=== PATIENT | male | born 1935 | race Caucasian/White ===

== ENCOUNTER → 2016-07-03 | Outpatient (CLI) | payer OTHER ==
[~2016-07-03] MED LIST: ASPIRIN81 M1 PO; ATORVASTATIN CA40 M1 PO; BRILINTA90 M1 PO; CEFTIN500 M1 PO; DARVOCET N 1001 TAB PO; GEMFIBROZIL600 MG PO; GLIMEPIRIDE4 MG PO; HYDRODIURIL25 MG PO; LISINOPRIL20 MG PO; METFORMIN1000 MG PO; METOPROLOL SUCC25 M2 PO; METOPROLOL SUCC50 M2 PO; ONGLYZA5 MG PO; SIMVASTATIN5 MG PO; THE MEDICINE SH20 M1 PO; ZANTAC150 MG PO
== END | disposition home or self-care (01) ==
LOC: CARD 15:49
DX: I25.10 Atherosclerotic heart disease of native coronary artery without angina pectoris (principal); I08.1 Rheumatic disorders of both mitral and tricuspid valves

== ENCOUNTER 2016-07-23 09:11 | Emergency (ER) | payer OTHER ==
[~2016-07-23] VITALS: Ht 182.8 cm; Wt 90.7 kg
[2016-07-23 10:19] LABS: BASO % 0.2 % (0.0-1.0); EOS % 0.7 % (1.0-4.0); HEMATOCRIT 30.8 % (42.0-52.0); HEMOGLOBIN 9.5 g/dl (14.0-18.0); IG # 0.1 10*3/uL (0.0-0.1); LYMPH % 17.6 % (27.0-41.0); MEAN CELL VOLUME 91.7 fl (80.0-94.0); MEAN CORPUSCULAR HGB 28.3 pg (27.0-31.0); MEAN CORPUSCULAR HGB CONC 30.8 g/dl (33.0-37.0); MEAN PLATELET VOLUME 9.3 fl (9.6-12.3); MONO # 0.3 10*3/uL (0.1-1.0); NEUT # 4.2 10*3/uL (2.3-7.9); NEUT % 74.9 % (47.0-73.0); PLATELET COUNT AUTOMATED 156 10*3/uL (130-400); RED BLOOD COUNT 3.36 10*6/uL (4.50-5.90); RED CELL DISTRI WIDTH 14.3 % (0-14.5); WHITE BLOOD COUNT 5.6 10*3/uL (4.8-10.8)
[2016-07-23 10:26] LABS: PROTHROMBIN TIME 10.8 SECONDS (9.0-12.4)
[2016-07-23 10:36] LABS: ALBUMIN 3.4 gm/dl (3.1-4.5); ALKALINE PHOSPHATASE 96 U/L (45-117); BUN 29 mg/dl (7-24); CARBON DIOXIDE 25 mmol/L (21-32); CHLORIDE 109 mmol/L (98-107); CPK 323 U/L (39-308); EST GLOM FILT AFRICAN AMERICAN > 60 ml/min; GLUCOSE 86 mg/dL (65-99); MAGNESIUM 1.3 mg/dL (1.5-2.1); POTASSIUM 4.5 mmol/L (3.5-5.1); SGOT/AST 49 IU/L (3-35); SGPT/ALT 21 U/L (12-78); SODIUM 145 mmol/L (136-145); TOTAL PROTEIN 6.6 gm/dL (6.4-8.2)
[2016-07-23 10:40] LABS: BILIRUBIN, TOTAL 0.2 mg/dl (0.2-1.0); TROPONIN I < 0.015 ng/ml (<0.045)
[2016-07-23 11:59] VITALS: BP 144/61
[2016-07-23 12:02] LABS: BILIRUBIN NEGATIVE (NEGATIVE); BLOOD NEGATIVE (NEGATIVE); CLARITY CLEAR (CLEAR); COLOR YELLOW (YELLOW); GLUCOSE NEGATIVE (NEGATIVE); KETONE NEGATIVE (NEGATIVE); LEUKO ESTERASE NEGATIVE (NEGATIVE); NITRITE NEGATIVE (NEGATIVE); PROTEIN NEGATIVE (NEGATIVE); UROBILINOGEN 0.2 E.U./dl (0.2-1.0)
[2016-07-23 12:09] LABS: URINE REFLEX COMMENT NO (NO)
== END 2016-07-23 13:41 | disposition home or self-care (01) ==
LOC: ED 09:11
PROVIDERS: Nurse Practitioner Family
DX: E16.2 Hypoglycemia, unspecified (principal); M54.5 Low back pain; I25.2 Old myocardial infarction; E11.9 Type 2 diabetes mellitus without complications; Z79.82 Long term (current) use of aspirin; Z79.899 Other long term (current) drug therapy

== ENCOUNTER → 2016-09-21 | Outpatient (CLI) | payer OTHER ==
[2016-09-21 09:57] LABS: HEMOGLOBIN A1c 7.6 % (4.8-5.6)
[2016-09-21 10:11] LABS: BUN 17 mg/dl (7-24); CARBON DIOXIDE 26 mmol/L (21-32); CHLORIDE 107 mmol/L (98-107); CHOLESTEROL 86 mg/dL (<200); CPK 66 U/L (39-308); EST GLOM FILT AFRICAN AMERICAN > 60 ml/min; GLUCOSE 163 mg/dL (65-99); HDL CHOLESTEROL 30 mg/dl (40-60); LDL CHOLESTEROL 39 mg/dL (9-159); POTASSIUM 4.6 mmol/L (3.5-5.1); SODIUM 142 mmol/L (136-145); TRIGLYCERIDES 87 mg/dl (<150); VLDL CHOLESTEROL 17 mg/dL (6-40)
== END | disposition home or self-care (01) ==
LOC: LAB 09:20
PROVIDERS: Family Medicine
DX: E11.9 Type 2 diabetes mellitus without complications (principal); E78.00 Pure hypercholesterolemia, unspecified

== ENCOUNTER 2017-01-29 15:08 | Inpatient (IN) | payer OTHER ==
[~2017-01-29] VITALS: Ht 177.8 cm; Wt 70.1 kg
--- NOTE | ~2017-01-29 | PR ---
[place], [place] PROGRESS NOTE NAME: XIANG ORNELAS UNIT #: [id number] ROOM: 523 DOCTOR: LYNETTE NOVAK MD BIRTHDATE: [birth year] DOS: 02/05/2017 SUBJECTIVE: The patient was still noted a cough which remains intermittent, shortness of breath occurs with exertion. There was no wheezing or chest pain. Denies symptoms of hemoptysis. He is n.p.o. past midnight. Bronchoscopy planned to be done today. OBJECTIVE: VITAL SIGNS: The patient showed normal temperature, respiratory rate 21, heart rate of 70, blood pressure 135/76-136/64. Pulse oxygen saturation 3 liters 99% saturation. HEENT: No acute change. NECK: Supple. CARDIOVASCULAR: S1, S2 audible. LUNGS: The patient was noted without any wheezing or crackles. ABDOMEN: Soft, nontender. EXTREMITIES: Without any edema. LABORATORY DATA: BMP: BUN 32, creatinine normal, glucose 182. CBC: Hemoglobin 8.4, hematocrit 28.8, platelet count was normal. Workup for the interstitial lung disease. The patient remaining was available for the anti-Lizette 1 antibodies were noted as negative. The ELLE was noted as negative. Aldolase not negative ____ normal. The ANAMIKA level and the workup for the vasculitis is also noted as normal. The rheumatoid factor noted mildly elevated 16.1. The IgM antibody was noted as mild elevation and mild reduction of the IgG antibodies. Histoplasma were noted as negative. IMPRESSION: The patient bilateral pulmonary infiltration with finding of reticular infiltration as well as ground glass opacity for the patient in the lungs bilaterally, differential of chronic hypersensitivity pneumonitis and other chronic interstitial lung disease remains in consideration. Acute resolving exacerbation of chronic obstructive pulmonary disease. PLAN OF TREATMENT: Proceed with bronchoscopy as specimen will be obtained in the left lower lobe. Based on the current chest x-ray and the CT scan assessment. In the meantime, all other treatment to be continued previously bronchodilators, oxygen, and antibiotics and remaining medication without any changes and modification in treatment if necessary will be done after bronchoscopy. [place], [place] PROGRESS NOTE NAME: XIANG ORNELAS UNIT #: [id number] ROOM: 523 DOCTOR: LYNETTE NOVAK MD BIRTHDATE: [birth year] LYNETTE WEISS MD CM:JOHN 17 LYNETTE MARTINEZ MD 02/05/17 1219 interface
--- NOTE | ~2017-01-29 | PR ---
[place], [place] PROGRESS NOTE NAME: XIANG ORNELAS UNIT #: [id number] ROOM: 523 DOCTOR: LYNETTE NOVAK MD BIRTHDATE: [birth year] DOS: 02/06/2017 SUBJECTIVE: He has been noted comfortable at this time. Bronchoscopy done yesterday with mucopurulent material. Mucus plugs were cleared off endobronchial tree. Also, BAL specimen of the right lower lung was taken. OBJECTIVE: VITAL SIGNS: For the patient which has been recorded showed the temperature noted as normal, respiratory rate 20, heart rate 92, blood pressure 132/64, pulse oxygen saturation on 2 liters nasal cannula was 95% saturation. HEENT: Showed no acute change. NECK: Supple. CARDIOVASCULAR: S1, S2 is audible. LUNGS: The patient was noted without any wheezing or crackles at the present time. ABDOMEN: Soft, nontender. EXTREMITIES: No edema. LABORATORY DATA: BMP: BUN 31, creatinine was normal. The Gram stain of the bronchial washing few white blood cells, epithelial cells with rare gram-positive bacilli and few budding yeast. Cultures of the one was noted with heavy growth of yeast in one of the specimen and other shows moderate isolation of yeast. The cell count differential for the patient was noted with a 71% macrophages, 19% neutrophils with 2% eosinophils. IMPRESSION: The patient who has been currently noted with improvement in the respiratory symptom. The patient for exacerbation of chronic obstructive pulmonary disease, status post bronchoscopy. The BAL specimen ____ differential for the patient was suggestive of possibility of pulmonary fibrosis, pneumonia, collagen vascular diseases. PLAN OF MANAGEMENT: The patient could be considered for home discharge for this patient. The cytology specimen for patient was pending. Final culture results for the patient at this time was pending. However, the yeast was being isolated for the patient, which, may be an overgrowth for the patient rather than true infection. [place], [place] PROGRESS NOTE NAME: XIANG ORNELAS UNIT #: [id number] ROOM: 523 DOCTOR: LYNETTE NOVAK MD BIRTHDATE: [birth year] LYNETTE WEISS MD CM:PNTRANS [id number] 1254 LYNETTE MARTINEZ MD 02/06/17 1254 interface
--- NOTE | ~2017-01-29 | PROC NOTE ---
[place], [place] PROCEDURE NOTE NAME: XIANG ORNELAS UNIT #: [id number] ROOM: 523 DOCTOR: ABHISHEK MARTINEZ MD,LYNETTE BIRTHDATE: [birth year] DOS: 02/05/2017 PROCEDURE: Bronchial washing. PREOPERATIVE DIAGNOSIS: The patient with nonproductive cough as well as interstitial lung disease. POSTOPERATIVE DIAGNOSES: Evidence of moderate PEG impaction in mucus plug and bronchial tree bilaterally. BAL specimen was obtained in the left lower lobe. PROCEDURE DESCRIPTION: Informed consent obtained with the patient. The patient was brought to the OR and placed in supine position. Conscious sedation administered by the Anesthesia Department. After achieving proper sedation, airway introduced into the mouth. Bronchoscope advanced to the airway into laryngeal area. Epiglottis and vocal cords were seen. Bronchoscope advanced through the vocal cords into the tracheal lumen. Tracheal lumen was identified and noted moderate amount of mucus, which was suctioned out to mecca level. The right upper, right middle, right lower, left upper, lingular lower lobe bronchi were all examined, which shows moderate impaction to mucus plug with normal saline wash. BAL specimen was obtained in the left lower basilar bronchi without any difficulty. Procedure was tolerated by the patient except transient hypoxia, which was corrected by withdrawal of the scope addition oxygen supplementation. The bronchial washing sent for all the cultures as well as the BAL specimen was sent for the cell count with differential, cultures and the cytology. LYNETTE WEISS MD CM:PROCNOTE:PROCEDURE NOTE 1030 1321 LYNETTE MARTINEZ MD
--- NOTE | ~2017-01-29 | PR ---
[place], [place] PROGRESS NOTE NAME: XIANG ORNELAS UNIT #: [id number] ROOM: 523 DOCTOR: ABHISHEK MARTINEZ MD,LYNETTE BIRTHDATE: [birth year] DOS: 02/08/2017 SUBJECTIVE: He has been still noted with coughing, noted increased edema of the lower extremities, getting oral diuretic therapy as well. Denies symptoms of chest pain. Shortness of breath was still noted with exertion. OBJECTIVE: VITAL SIGNS: Normal temperature, respiratory rate 18, heart rate 88, blood pressure 132/61 to 123/56. Pulse oxygen saturation on 2 L cannula 97% saturation recorded. HEENT: No acute change. NECK: Supple. CARDIOVASCULAR: S1, S2 audible. LUNGS: Without any wheezing. Crackles still noted in the right lower lung. ABDOMEN: Soft and nontender. EXTREMITIES: Noted with 2+ pitting edema. LABORATORY DATA: CBC this morning, hemoglobin and hematocrit noted as hemoglobin 8.3 and hematocrit 28.5. BMP, BUN 29 and normal creatinine. IMPRESSION: 1. Edema of the lower extremity. 2. The patient with interstitial lung disease that has been noted at this time with a negative culture for any bacterial infection. The acid fast bacillus was noted negative, pending culture results. 3. Overall debility. PLAN OF TREATMENT: The patient has been considered for possible discharge to detention facility for further continued care. Continue close monitoring of the patient's current pulmonary status as an outpatient upon discharge. LYNETTE WEISS MD CM:PNTRANS [id number] 133 LYNETTE MARTINEZ MD 02/08/17 1336 interface
--- NOTE | ~2017-01-29 | PR ---
[place], [place] PROGRESS NOTE NAME: XIANG ORNELAS UNIT #: [id number] ROOM: 523 DOCTOR: LYNETTE NOVAK MD BIRTHDATE: [birth year] DOS: 02/02/2017 SUBJECTIVE: He still has expectorate sputum, but noted reduction in sputum expectoration. Denies symptoms of chest pain. Shortness of breath has been noted, currently few feet of walking from the bed to the bathroom; however, partial reduction were described. There were symptoms of acute chest pain or hemoptysis reported by the patient. OBJECTIVE: VITAL SIGNS: Shows normal temperature, respiratory rate 20, heart rate 76, blood pressure 120/72. The pulse oxygen saturation on 2 liters 98% saturation. HEENT: Shows no acute change. NECK: Supple. Head was atraumatic. CARDIOVASCULAR: S1, S2 audible. LUNGS: The patient was noted with scattered crackles with moderate expiratory wheezing in the lungs bilaterally. ABDOMEN: Soft, obese, nontender. EXTREMITIES: Without any edema. LABORATORY DATA: Gram stain of the sputum from yesterday, many white blood cells, moderate epithelial cells, few budding yeast, rare gram-positive cocci in pairs and chains and gram-positive bacilli. Moderate growth of yeast was isolated preliminary cultures with pending results. The ESR was noted as 17. The CRP was also noted as normal. Remaining interstitial disease workup was pending. IMPRESSION: 1. Interstitial lung disease with various differentials has been considered. Currently, the patient has been noted with acute exacerbation of chronic obstructive pulmonary disease and acute bacterial bronchitis as well, treated with appropriate medications with improvement noted gradually. 2. History of nicotine abuse in the form of the chewing tobacco. PLAN OF TREATMENT: Continue monitoring the current workup. Continue antibiotics, bronchodilators and other therapy as implant without any changes need to be made in the treatment for today. All other supportive plan of management with continued. Usual care. [place], [place] PROGRESS NOTE NAME: XIANG ORNELAS UNIT #: [id number] ROOM: 523 DOCTOR: LYNETTE NOVAK MD BIRTHDATE: [birth year] LYNETTE AZIZ, MD CM:PNTRANS 1353 1420 LYNETTE MARTINEZ MD 02/02/17 1420 interface
--- NOTE | ~2017-01-29 | CON ---
[place], [place] REPORT OF CONSULTATION NAME: XIANG ORNELAS [facility] #: [id number] UNIT #: [id number] ROOM: 523 DOCTOR: FABIÁN NEWBERRY DPM BIRTHDATE: [birth year] DOS: 02/01/2017 SUBJECTIVE: This 81-year-old white male is seen for care of painful toenails on both feet. He is diabetic. He states he has been diabetic for several years. PAST MEDICAL HISTORY: Positive for gastroesophageal reflux disease, pneumonia, hyperlipidemia, hypertension, history of skin cancer and type 2 diabetes, history of cataract surgery, cardiac stent, history of neck surgery. ALLERGIES: IODINE. CURRENT MEDICATIONS: Include Solu-Medrol, Mucinex, Lasix, vitamin D, Carafate, Actos, Zestril, Lipitor, Amaryl, Prilosec, Percocet, Rocephin, Zithromax, albuterol. PHYSICAL EXAMINATION: Upon lower extremity physical examination, pedal pulses are barely palpable. There is dependent edema noted bilaterally with negative Homans sign. The skin is thin and shiny. Hair growth is decreased. Skin temperature is cool to toes. Varicosities are present bilaterally. Sensation is diminished bilaterally and symmetrically. No paresthesias are seen. Contracted lesser digits are seen bilaterally. Prominent metatarsal head and plantar fat pad atrophy is seen. Nails 1 through 5 bilaterally are thick, elongated, brittle, dystrophic, with subungual debris present. No ulcerations are present. No hyperkeratotic tissue noted. ASSESSMENT: Diabetes mellitus, venous insufficiency, PAD, onychomycosis 1 through 5 bilaterally. PLAN: Consult was performed. Manual debridement of mycotic nails 1 through 5 bilaterally in length and thickness to the level of the nail bed to reduce hazards such as infection. I discussed about proper diabetic foot care, discussed about elevating his legs, compression stockings for swelling. Follow up the patient in 9 weeks as an outpatient. Thank you for the opportunity to take part in care of this patient. FABIÁN NEWBERRY DPM CM:CONSTR:REPORT OF CONSULTATION 1209 02/01/17 2008 interface
--- NOTE | ~2017-01-29 | CON ---
[place], [place] REPORT OF CON[facility]ULTATION [id number] UNIT #: [id number] ROOM: 523 DOCTOR: LYNETTE NOVAK MD BIRTHDATE: [birth year] DOS: 02/01/2017 CONSULTATION REQUESTED BY: Hospitalist services. REASON FOR CONSULTATION: To assess the patient for COPD exacerbation. HISTORY OF PRESENT ILLNESS: This is an 81-year-old white male who has been known to me from the past with previous assessment in 04/2015. He has been noted history of COPD, presented to the hospital and admitted under the hospitalist service, the patient on 01/29/2017. The patient has fallen at home, resulting in some superficial injury to the face and around the eye. He also hit his head. The patient denies any symptoms of chest pain. He has been complaining of symptoms of shortness of breath for the past few weeks. The shortness of breath has been noted gradually worsening. He does have sputum expectoration, which has been noted to yellowish thick and purulent and intermittently associated with the cough. He does have symptoms of wheezing at times as well. Denies symptoms of chest pain or any hemoptysis. He denies any chest pain or chest trauma with current fall. REVIEW OF SYSTEMS: CONSTITUTIONAL: Fatigue and tiredness. The patient was noted without any fever or chills for the past several days. EYES: Denies any burning, redness, or tenderness. EARS, NOSE, THROAT SYMPTOMS: Denies sore throat, hoarseness, otalgia, postnasal drainage or epistaxis. CARDIOVASCULAR: Denies anginal pain, edema or pain of the lower extremities. GASTROINTESTINAL: Dysphagia, nausea, vomiting, diarrhea, abdominal pain, hematemesis, melena, hematochezia, or syncopal episodes. SKIN: Denies lesions or rashes. CENTRAL NERVOUS SYSTEM: No dizziness, headache, diplopia, syncopal episode. The patient with dizziness. The rest of systems were reviewed, they were noted all negative. PAST MEDICAL HISTORY: The patient was known with history of: 1. COPD. 2. History of past tobacco use. The patient ____ cigarettes are currently noted chewing tobacco. 3. Coronary artery disease with previous myocardial infarction in 03/2015. 4. Essential hypertension. 5. Hypercholesterolemia. 6. Gastroesophageal reflux. 7. Cardiomyopathy. The patient's ejection fraction, previous known at 40%. 8. Type 2 diabetes mellitus. 9. Hyperlipidemia. 10. The patient has possibility of interstitial lung disease, which has not had any further workup done previously. PAST SURGICAL HISTORY: 1. Noted as a diskectomy of the cervical spine and lumbar spine. 2. Cataract extraction with lens implantation. [place], [place] REPORT OF CONSULTATION NAME: XIANG ORNELAS UNIT #: [id number] ROOM: 523 DOCTOR: LYNETTE NOVAK MD BIRTHDATE: [birth year] 3. Cardiac catheterization and coronary stent placement of the right coronary artery. SOCIAL HISTORY: The patient is , has 4 children. Denies history of alcohol use, illicit drug use. Tobacco use was known from the age of [age] years old up to 2 packs of cigarettes per day that was discontinued approximately 21 years ago. Denies history of alcohol use or any illicit drugs. FAMILY HISTORY: Reported for history of diabetes mellitus. MEDICATIONS: 1. Current administered medication were noted as use of IV Solu-Medrol 40 mg q. 8 hours. 2. Mucinex 1200 mg p.o. b.i.d. 3. Carafate 2 grams p.o. b.i.d. 4. Vitamin D 2000 international units daily. 5. Vitamin B12 1000 mcg daily. 6. Actos 30 mg daily. 7. Pravastatin 40 mg daily. 8. Lisinopril 40 mg daily. 9. Amaryl 4 mg daily. 10. Omeprazole 20 mg daily. 11. DuoNeb q. 4 hours. 12. Azithromycin, IV Rocephin, and other p.r.n. medications administration. DRUG ALLERGIES: THE PATIENT WAS NOTED ALLERGY TO THE IODINE. PHYSICAL EXAMINATION: GENERAL: An 81-year-old white male who has been currently noted comfortably sitting on the side of the bed. The patient expectorates sputum, the patient appeared to be mixed with his current tobacco chewing and brown in color, a copious amount was noted in the cup. VITAL SIGNS: Height for the patient recorded by the nursing staff for the patient with height of 5 feet 10 inches, weight of 154 pounds, BMI 22.1. Vital signs for the patient, which has been recorded showed the temperature recorded normal, respiratory rate 20-18, heart rate 84-78, blood pressure 128/67 to 110/55 in the last 24 hours. Pulse oxygen saturation on 2 liters 98% saturation recorded. HEENT: Examination shows chronic obesity. Head was atraumatic. Eyes nonicterus. NECK: Supple. CARDIOVASCULAR: S1, S2 is audible. LUNGS: The patient was noted with moderate decreased breath sounds in the lungs bilaterally. ABDOMEN: Soft, nontender. EXTREMITIES: The patient was noted without any edema. LABORATORY DATA: The CBC for the patient of 02/01/2017, hemoglobin 8.0, hematocrit 26.7, WBC count normal, platelet count was normal. CMP of the patient this morning, BUN 31, creatinine 1.30, glucose 231, calcium uncorrected [place], [place] REPORT OF CONSULTATION NAME: XIANG ORNELAS UNIT #: [id number] ROOM: 523 DOCTOR: LYNETTE NOVAK MD BIRTHDATE: [birth year] is 6.9, total protein of 6.1, albumin 2.8. Troponin for the patient noted minimally elevated at 0.046. Blood culture from the 5th of this month showed no bacterial growths. CBC of 01/29/2017, essentially noted with anemia, otherwise normal WBC count and platelet count. CMP of the patient at that time. Normal BUN and creatinine. RADIOLOGY DATA: Review performed for this patient. The CT scan of the chest. The patient's chest x-ray was done. Chest x-ray shows evidence of interstitial infiltration in the lungs. CT scan of the chest that was done for patient on 01/30/2017, the patient was reviewed and directly compare patient PACS images for the last CT scan of the chest of 04/2015. The subpleural area of pulmonary fibrosis. The findings were not noted classical for idiopathic pulmonary fibrosis; however, in about a year or so some cyst development for the patient was noted in the lower portion of the lung, which may be suggestive of idiopathic pulmonary fibrosis. There was no lymphadenopathy was noted. The findings were noted lately progression. The patient as compared with the previous CT scan of the chest comparison, however, the CT scan of the chest was not noted high resolution. IMPRESSION: 1. The patient will be currently admitted to the hospital at this time, noted with findings of an acute exacerbation of chronic obstructive pulmonary disease. 2. Chronic nicotine dependence. 3. The patient with ____. The patient appeared to be fibrotic, cellular component, not classical for the idiopathic pulmonary fibrotic finding. However, Bactrim may be suggestive of that. The differential diagnosis, the patient to be considered with the patient's current abnormal CT scan of the chest would be a chronic hypersensitivity pneumonitis for this patient, possibly sarcoidosis could be considered, but not very likely. Certainly connective tissue disorder would be considered in differential diagnosis for the patient resulting in current pulmonary fibrosis. PLAN OF MANAGEMENT: The workup for the interstitial lung disease has been ordered. He will benefit from the bronchoscopy with the BAL specimen. The patient of the lower lung for this patient for further determination to have guide in the differential diagnosis of the current problem. If necessary the transbronchial biopsy would be done for the patient in the lower lung for this patient as well as in the future the patient might be considered for transbronchial biopsies as well. All other supportive plan of management. Continue maximum other medical management. The assessment patient of anemia. The patient remains in consideration. Usual care. All other supportive plan of management. Continue to maximize the current medical treatment. The patient already getting Solu-Medrol for the current acute exacerbation of chronic obstructive pulmonary disease that will be continued as well. Thanks for allowing me to participate in the care of this patient. [place], [place] REPORT OF CONSULTATION NAME: XIANG ORNELAS UNIT #: [id number] ROOM: 523 DOCTOR: LYNETTE NOVAK MD BIRTHDATE: [birth year] LYNETTE WEISS MD CM:CONSTR:REPORT OF CONSULTATION 1123 02/01/17 1728 interface
--- NOTE | ~2017-01-29 | PR ---
[place], [place] PROGRESS NOTE NAME: XIANG ORNELAS UNIT #: [id number] ROOM: 523 DOCTOR: ABHISHEK MARTINEZ MD,LYNETTE BIRTHDATE: [birth year] DOS: 02/03/2017 SUBJECTIVE: He has been comfortably resting at this time. Coughing has been noted intermittently. Reduction of sputum production and the cough frequency. Shortness of breath has been noted, unchanged. OBJECTIVE: VITAL SIGNS: Which were recorded shows normal temperature, respiratory rate 18, heart rate 87, blood pressure 146/66. Pulse oxygen saturation on 2 liter nasal cannula 97% saturation. HEENT: Examination shows chronic obesity. NECK: Supple and obese. CARDIOVASCULAR: S1, S2 audible. LUNGS: Without any wheeze or crackles. The breaths are noted mildly decreased. ABDOMEN: Soft, nontender. LABORATORY DATA: CBC: Hemoglobin of 8.4, hematocrit 28.4, WBC count normal, platelet count was normal. BMP: The patient on 02/03, BUN 32, creatinine was normal, glucose 208. Culture of the sputum shows growth of yeast. IMPRESSION: 1. The patient with interstitial lung disease, superimposed with acute tracheobronchitis the patient noted at this time, which has been treated with the antibiotics. 2. Acute exacerbation of chronic obstructive pulmonary disease as above. PLAN OF MANAGEMENT: Use of the corticosteroids, antibiotics, bronchodilators, and monitoring the respiratory status to be continued. However, the dose of Solu-Medrol will be decreased to 40 mg b.i.d. today from 40 mg q.8 hours. LYNETTE WEISS MD CM:PNTRANS 1437 07 LYNETTE MARTINEZ MD 02/03/171707 interface
--- NOTE | ~2017-01-29 | PR ---
[place], [place] PROGRESS NOTE NAME: XIANG ORNELAS UNIT #: [id number] ROOM: 523 DOCTOR: LYNETTE NOVAK MD BIRTHDATE: [birth year] DOS: 02/04/2017 SUBJECTIVE: The patient seen and examined on 02/04/2017. He has been noted comfortable at this time, but still noted with a cough, which has been noted intermittently. The cough frequency has been noted somewhat decreased. There were symptoms of chest pain described by the patient. The wheezing has been noted, none. OBJECTIVE: VITAL SIGNS: Normal temperature, respiratory rate 18, heart rate 68, blood pressure 129/71 to 137/74. The pulse oxygen saturation of the patient noted on 3 liters 98% saturation. HEENT: Showed no acute change. NECK: Supple. CARDIOVASCULAR: S1, S2 is audible. LUNGS: The patient was noted without any wheezing or crackles at present time. ABDOMEN: Soft, nontender. EXTREMITIES: Without any acute edema. LABORATORY DATA: CBC today, hemoglobin 8.4, hematocrit 28.9, WBC count normal, platelet count were normal. The BMP of 02/04/2017, glucose 277, BUN 35, creatinine of 1.31. Remaining electrolytes were normal. IMPRESSION: 1. The patient with acute exacerbation of chronic obstructive pulmonary disease, seem to be responding. 2. Nonspecific interstitial pneumonia the patient with the fiberoptic and cellular appearance of the current infiltration on CT scan of the chest. Further diagnostic workup in place. PLAN OF MANAGEMENT: Continue antibiotics, bronchodilators, and oxygen supplementation. The bronchoscopy was planned to be done tomorrow morning for BAL specimen for the assessment of interstitial lung disease. Monitor the other results of the interstitial lung disease, which has been sent for this patient with the lab tests. [place], [place] PROGRESS NOTE NAME: XIANG ORNELAS UNIT #: [id number] ROOM: 523 DOCTOR: LYNETTE NOVAK MD BIRTHDATE: [birth year] LYNETTE WEISS MD CM:PNTRANS [id number] LYNETTE MARTINEZ MD 02/05/17 0103 interface
--- NOTE | ~2017-01-29 | EKG ---
[place], [place] ELECTROCARDIOGRAM REPORT NAME: XIANG ORNELAS UNIT #: [id number] ROOM: 523 DOCTOR: KELSEY MOORE,MENDEZ BIRTHDATE: [birth year] DOS: 01/29/2017 TIME: 1559 hours. IMPRESSION: 1. Sinus rhythm. 2. Low voltage complexes. 3. Poor R-wave progression. 4. Prolonged QT interval. MENDEZ COLE MD CM:EKGRPT:ELECTROCARDIOGRAM REPORT [id number] MENDEZ COLE MD
--- NOTE | ~2017-01-29 | PR ---
[place], [place] PROGRESS NOTE NAME: XIANG ORNELAS UNIT #: [id number] ROOM: 523 DOCTOR: ABHISHEK MARTINEZ MD,LYNETTE BIRTHDATE: [birth year] DOS: 02/07/2017 SUBJECTIVE: The patient has been noted comfortable, but still noted the cough, which has not been completely resolved. Over severe debility was still noted with physical debility and decreased ambulation. The patient is getting physical therapy. OBJECTIVE: VITAL SIGNS: Normal temperature, respiratory rate 20, heart rate 74, blood pressure 150/66 to 159/57. The pulse oxygen saturation of the patient recorded as 96% on 2 liters nasal cannula. HEENT: Showed no acute change. NECK: Supple. CARDIOVASCULAR: S1, S2 is audible. LUNGS: The patient was noted without any wheezing or crackles. ABDOMEN: Soft, nontender. EXTREMITIES: Without any edema. LABORATORY DATA: CBC this morning anemia, otherwise normal CBC. Acid fast bacillus of both bronchial washing and BAL were noted negative. The culture for the patient has identified moderate and heavy growth of yeast from the bronchial washings without any other abnormal organisms. IMPRESSION: The patient who has been currently treated and noted with interstitial lung disease with acute bronchitis, superimposed possibly pneumonia cannot be completely excluded. Pulmonary fibrosis. The patient was also noted not to consistent with an usual interstitial pneumonitis. An overall debility. PLAN OF TREATMENT: The patient should be considered for the [facility] facility placement for the rehabilitation prior to subsequent home discharge. Culture will be monitored. Monitoring cytology specimen. Cytology specimen bronchial washing. LYNETTE WEISS MD CM:PNTRANS [id number] LYNETTE MARTINEZ MD 02/07/17 1246 interface
[2017-01-29 15:17] VITALS: BP 125/61
[2017-01-29 15:35] VITALS: BP 136/69
[2017-01-29 17:18] LABS: BASO % 0.2 % (0.0-1.0); EOS # 0.2 10*3/uL (0.0-0.4); EOS % 1.8 % (1.0-4.0); HEMATOCRIT 31.1 % (42.0-52.0); HEMOGLOBIN 8.6 g/dl (14.0-18.0); LYMPH # 1.8 10*3/uL (1.3-4.4); LYMPH % 20.9 % (27.0-41.0); MEAN CELL VOLUME 82.7 fl (80.0-94.0); MEAN CORPUSCULAR HGB 22.9 pg (27.0-31.0); MEAN CORPUSCULAR HGB CONC 27.7 g/dl (33.0-37.0); MEAN PLATELET VOLUME 10.2 fl (9.6-12.3); MONO # 0.4 10*3/uL (0.1-1.0); MONO % 4.4 % (3.0-9.0); NEUT # 6.1 10*3/uL (2.3-7.9); NEUT % 71.9 % (47.0-73.0); NUCLEATED RED BLOOD CELL 0.1 10*3/uL (0.0-0.0); NUCLEATED RED BLOOD CELL 0.6 % (0.0-0.0); PLATELET COUNT AUTOMATED 228 10*3/uL (130-400); RED BLOOD COUNT 3.76 10*6/uL (4.50-5.90); RED CELL DISTRI WIDTH 15.7 % (0-14.5); WHITE BLOOD COUNT 8.5 10*3/uL (4.8-10.8)
[2017-01-29 17:28] LABS: ACT PARTIAL THROMBO TIME 23.9 SECONDS (20.8-31.5); INTERNATIONAL NORM RATIO 1.1 (2.0-3.5)
[2017-01-29 17:37] LABS: ALBUMIN 3.5 gm/dl (3.1-4.5); ALKALINE PHOSPHATASE 188 U/L (45-117); BUN 14 mg/dl (7-24); CHLORIDE 107 mmol/L (98-107); LIPASE 213 U/L (73-393); SGOT/AST 22 IU/L (3-35); SGPT/ALT 13 U/L (12-78); SODIUM 140 mmol/L (136-145); TOTAL PROTEIN 7.9 gm/dL (6.4-8.2)
[2017-01-29 19:54] VITALS: BP 137/57
[2017-01-29 19:55] VITALS: BP 137/57
[2017-01-29] MEDS ORDERED: ACTOS30 M1 PO (20:15)
[2017-01-29] MEDS ORDERED: PERCOCET 5-3251 EACH PO (20:17)
--- NOTE | 2017-01-29 20:28 | NUR ---
Time: 1953 A 81 year old MALE] admitted to 5E under services of ROOSEVELT POPE DO. Pt. arrived via stretcher from ER. Chief complaint: GENERALIZED WEAKNESS ANEMIA . [place]
--- NOTE | 2017-01-29 21:20 | NUR ---
PATIENT IN ROOM WITH FAMILY NO CO AT THIS TIME CALL LIGHT IN REACH BED ALARM ON
--- NOTE | 2017-01-29 21:57 | NUR ---
CALLED DR ALVAREZ NOTIFED HIM PATIENTS LATIC ACID WAS CURRENTLY 3.8 PATIENT CURENTLY HAS FLUID BOLUS RUNNING AND HAS ANOTHER NORMAL SALINE ORDERED TO RUN AT 125. PATIENTS PREVIOS LATIC ACID WAS 4.6 NO NEW ORDERS WERE RECEIVED
--- NOTE | 2017-01-29 22:25 | NUR ---
PATIENTS MEDIACTIONS WERE REVIEWED WITH PHARMACY AND ARE CORRECT
[2017-01-30] VITALS (9 sets, daily range): BP systolic 109–134; BP diastolic 50–99
[2017-01-30 06:59] LABS: HEMATOCRIT 25.1 % (42.0-52.0); HEMOGLOBIN 7.1 g/dl (14.0-18.0); MEAN CELL VOLUME 83.7 fl (80.0-94.0); MEAN CORPUSCULAR HGB 23.7 pg (27.0-31.0); MEAN CORPUSCULAR HGB CONC 28.3 g/dl (33.0-37.0); MEAN PLATELET VOLUME 11.1 fl (9.6-12.3); NUCLEATED RED BLOOD CELL 0.6 % (0.0-0.0); PLATELET COUNT AUTOMATED 160 10*3/uL (130-400); RED CELL DISTRI WIDTH 15.9 % (0-14.5); WHITE BLOOD COUNT 4.8 10*3/uL (4.8-10.8)
[2017-01-30 07:16] LABS: ALBUMIN 2.6 gm/dl (3.1-4.5); CREATININE 1.44 mg/dL (0.70-1.30); PHOSPHOROUS 3.8 mg/dL (2.5-4.9); TOTAL PROTEIN 6.1 gm/dL (6.4-8.2)
[2017-01-30 07:23] LABS: THYROID STIM HORMONE (HS) 0.468 uIU/ml (0.358-4.75)
[2017-01-30 07:35] LABS: PLATELET SUFFICIENCY NORMAL (NORMAL); POLYCHROMASIA SLIGHT; TOTAL CELLS COUNTED 100 #CELLS
[2017-01-30 07:46] LABS: POTASSIUM 5.1 mmol/L (3.5-5.1)
[2017-01-30 08:21] LABS: BILIRUBIN NEGATIVE (NEGATIVE); BLOOD NEGATIVE (NEGATIVE); CLARITY CLEAR (CLEAR); COLOR YELLOW (YELLOW); GLUCOSE 3+ (NEGATIVE); KETONE NEGATIVE (NEGATIVE); LEUKO ESTERASE NEGATIVE (NEGATIVE); NITRITE NEGATIVE (NEGATIVE); SPECIFIC GRAVITY 1.015 (1.005-1.030); UROBILINOGEN 0.2 E.U./dl (0.2-1.0)
[2017-01-30 08:36] LABS: VITAMIN D, 25-HYDROXY 13.3 ng/mL (30-100)
[2017-01-30 08:41] LABS: MUCOUS TRACE; RBC 0-2 rbc/hpf (0-2); WBC 0-2 wbc/hpf (0-5)
--- NOTE | 2017-01-30 09:00 | NUR ---
Property Investor in to talk to patient. Patient states lives at home with . There are 4 steps up to the front of the home and 20 steps to the second floor. Physician: Dr. Bridger Hutchison [facility]: [facility] health services: none Patient's level of ADLs: MINIMAL ASSIST Patient has working utilities: yes DME: walker, 2 canes, wheelchair Follow-up physician's appointment after d/c: will be made by hospitalist nurse director upon discharge Does patient want to access PORTAL?: no Discharge plan discussed with patient. Patient lives at home with his . Family has recently moved his bedroom to the first floor and is in the process of adding a shower to the downstairs bathroom. He states he gets around with minimal assistance. He does take his time and takes break when ambulating. Discussed a short term skilled facility and patient refuses. He is willing to have home health. data processing systems project planner to follow. PAMELA SMYTH
--- NOTE | 2017-01-30 10:30 | NUR ---
Electronic Assembler Group Leader in to speak with son regarding home health when patient is discharged. Patient/son agreeable to [facility]. production planner scheduler/high school social studies teacher will follow-up.
--- NOTE | 2017-01-30 11:00 | NUR ---
XIANG ORNELAS [id number] Please refer to the physician's history and physical for past medical history, comorbid conditions, and allergies. Diagnosis: ANEMIA COPD W EXACERBATION GENERALIZED WEAKNESS Kunal Score: 18,AT RISK WOUND DESCRIPTIONS: Location of the wound: FOREHEAD ABOVE RIGHT EYE Type of wound: ABRASION Thickness: Partial Size: 1.5cm x 2cm x 0.1cm Tunneling: none Undermining: none Sinus Tract: none Presence of Exudate: Amount: None Color: Red Odor: None Periwound Skin Appearance: Normal Wound edges: approximated Pain (associated with wound): patient denied at time of assessment How does patient state this happened? patient states he fell "couple days ago" coming out of his doctor's office Location of the wound: below right eye Type of wound: abrasion Thickness: Partial Size: 1cm x 2.5cm x 0.1cm Tunneling: none Undermining: none Sinus Tract: none Presence of Exudate: Amount: None Color: Red Odor: None Periwound Skin Appearance: Normal Wound edges: apprximated Pain (associated with wound): patient denied at time of assessment How does patient state this happened? patient states he fell "couple days ago" coming out of his doctor's office Multiple intact scabs to BLE noted. Surface the patient is resting on: Isoflex SKIN PREVENTION RECOMMENDATION: 1. Pressure redistribution support surface as appropriate 2. Elevate heels 3. Remove boots/TEDS every shift and reapply 4. Head of bed 30 degrees as tolerated 5. Assess nutrition and hydration 6. Manage moisture 7. Avoid the use of containment devices while in bed 8. Use absorptive products on surfaces limit layers of linens on bed 9. Turn and reposition every 1-2 hours in bed and every 1 hour in chair as tolerated 10. Weight shifts every 15 minutes while up in chair 11. Offloading with pillows or device to keep heels elevated off bed 12. Monitor skin at least every shift 13. Inspect under medical devices twice a day WOUND TREATMENT RECOMMENDATIONS: antibiotic ointment to abrasions and leave open to air
--- NOTE | 2017-01-30 14:19 | NUR ---
PHYSICAL THERAPY PAtient evaluated on 5, full evaluation to follow. Continue with PT as per plan of care with fall, recent head injury with fall and acute debility precautions, new 02 precautions as well. MAy require SNF versus home with 24/ family assist and complete home health services. PAtient is moderate complexity via chart review, tests and evaluation: [id number]. Thank you for this referral. Heather Mane,PT
--- NOTE | 2017-01-30 16:48 | NUR ---
DR VALADEZ NOTIFIED OF CONSULT.
--- NOTE | 2017-01-30 21:10 | NUR ---
BLOOD INITIATIED AT THIS TIME. BLOOD SLIP CHECKED WITH VERO DOZIER RN, BLOOD CONSENT SIGNED. VSS. WILL REASSESS
--- NOTE | 2017-01-30 23:32 | NUR ---
PRN PERCOCET AND RESTORIL GIVEN FOR PT COMPLAINTS OF BACK PAIN RATING IT A 6 OF OUT 10 AND SLEEPLESSNESS, CALL LIGHT WITHN REACH, WILL MONITOR
[2017-01-31] VITALS (9 sets, daily range): BP systolic 110–160; BP diastolic 60–81
--- NOTE | 2017-01-31 01:00 | NUR ---
PRN MEDICATION APPEARS EFFECTIVE, PT SLEEPING
[2017-01-31 07:27] LABS: HEMATOCRIT 28.7 % (42.0-52.0); HEMOGLOBIN 8.2 g/dl (14.0-18.0); MEAN CELL VOLUME 83.2 fl (80.0-94.0); MEAN CORPUSCULAR HGB 23.8 pg (27.0-31.0); MEAN CORPUSCULAR HGB CONC 28.6 g/dl (33.0-37.0); MEAN PLATELET VOLUME 11.7 fl (9.6-12.3); NUCLEATED RED BLOOD CELL 0.1 10*3/uL (0.0-0.0); NUCLEATED RED BLOOD CELL 0.9 % (0.0-0.0); PLATELET COUNT AUTOMATED 188 10*3/uL (130-400); RED BLOOD COUNT 3.45 10*6/uL (4.50-5.90); RED CELL DISTRI WIDTH 15.5 % (0-14.5); WHITE BLOOD COUNT 10.5 10*3/uL (4.8-10.8)
[2017-01-31 07:48] LABS: ALBUMIN 2.9 gm/dl (3.1-4.5); CREATININE 1.46 mg/dL (0.70-1.30); PHOSPHOROUS 3.8 mg/dL (2.5-4.9); POTASSIUM 4.8 mmol/L (3.5-5.1); TOTAL PROTEIN 6.6 gm/dL (6.4-8.2)
[2017-01-31 08:28] LABS: OVALOCYTES FEW; PLATELET SUFFICIENCY NORMAL (NORMAL); POLYCHROMASIA SLIGHT; TOTAL CELLS COUNTED 100 #CELLS
--- NOTE | 2017-01-31 10:15 | NUR ---
Public Health Nurse in to see pt. No new needs or request at this time. Discussed short tem SNF and pt refuses. When medically stable he will be discharged home with [facility].
--- NOTE | 2017-01-31 13:05 | NUR ---
CALLED DR. SOSA AND NOTIFIED OF STAT CXR RESULTS AND THAT FAMILY IS REQUESTING A CONSULT WITH DR. WEISS AND PODIATRY CONSULT FOR TOENAIL CLIPPING.
--- NOTE | 2017-01-31 14:35 | NUR ---
DR. WEISS'S OFFICE NOTIFIED OF CONSULT. EDDI FLORES RN
--- NOTE | 2017-01-31 15:02 | NUR ---
DR. ZAVALA'S OFFICE NOTIFIED OF NEW CONSULT FOR DIABETIC TOENAIL CARE. EDDI FLORES RN
--- NOTE | 2017-01-31 22:29 | NUR ---
PRN PERCOCET AND RESTORIL GIVEN FOR PT COMPLAINTS OF BACK PAIN RATING IT AN 8 OUT OF 10 AND SLEEPLESSNESS. CALL LIGHT WITHIN REACH, WILL MONITOR
[2017-02-01] VITALS: BP 110/55
--- NOTE | 2017-02-01 | NUR ---
PRN MEDICATION APPEARS EFFECTIVE, PT SLEEPING
--- NOTE | 2017-02-01 03:30 | NUR ---
AT THIS TIME PATIENTS ALARM ON ASSISTANT PROFESSOR OF ANTHROPOLOGY RANG VTACH. IN TO ASSESS PATIENT. VITAL SIGNS ARE STABLE, PT COMPLAINING OF INDIGESTION. DILAN DILLON MADE AWARE AND IS COMING UP TO SEE PATIENT
--- NOTE | 2017-02-01 04:18 | NUR ---
SPOKE WITH DR. KONG AT THIS TIME, PATIENT NOT COMPLAINING OF INDIGESTION ANYMORE AT THIS TIME, RHYTHM ON HEART MONITOR, OCCASIONAL PAC'S AND RARE PVC'S. DR. KONG AWARE, STAT TROPONIN ORDERED AND TO CALL WITH RESULTS
[2017-02-01 04:42] LABS: HEMATOCRIT 26.7 % (42.0-52.0); MEAN CELL VOLUME 82.2 fl (80.0-94.0); MEAN CORPUSCULAR HGB 24.6 pg (27.0-31.0); MEAN PLATELET VOLUME 10.2 fl (9.6-12.3); NUCLEATED RED BLOOD CELL 0.1 10*3/uL (0.0-0.0); NUCLEATED RED BLOOD CELL 0.5 % (0.0-0.0); PLATELET COUNT AUTOMATED 160 10*3/uL (130-400); RED BLOOD COUNT 3.25 10*6/uL (4.50-5.90); RED CELL DISTRI WIDTH 15.9 % (0-14.5); WHITE BLOOD COUNT 9.3 10*3/uL (4.8-10.8)
[2017-02-01 05:00] LABS: TOTAL CELLS COUNTED 100 #CELLS
[2017-02-01 05:01] LABS: ALBUMIN 2.8 gm/dl (3.1-4.5); ALKALINE PHOSPHATASE 124 U/L (45-117); BUN 31 mg/dl (7-24); CHLORIDE 108 mmol/L (98-107); PHOSPHOROUS 2.6 mg/dL (2.5-4.9); PLATELET SUFFICIENCY NORMAL (NORMAL); POLYCHROMASIA SLIGHT; POTASSIUM 4.5 mmol/L (3.5-5.1); SGOT/AST 24 IU/L (3-35); SGPT/ALT 17 U/L (12-78); SODIUM 140 mmol/L (136-145); TOTAL PROTEIN 6.1 gm/dL (6.4-8.2)
--- NOTE | 2017-02-01 05:05 | NUR ---
DR. KONG NOTIFIED OF TROPONIN RESULT AND CRITICAL CALICIUM LEVEL. NO NEW ORDERS RECIEVED
[2017-02-01 08:00] VITALS: BP 128/67
--- NOTE | 2017-02-01 09:30 | NUR ---
Insert Molding Operator in to see pt. No new needs or request at this time. Discussed short term SNF and pt refuses. When medically stable he will be discharged home with [facility].
--- NOTE | 2017-02-01 11:41 | NUR ---
PHYSICAL THERAPY Patient presented to therapy with report of wanting to do therapy. Patient performed supine to sitting at EOB transfer with Supervision. Patient performed sit to stand with SBA. Patient performed gait with W/W and CGA for 100' x 1 with 2 liters of O2. Patient was left sitting at EOB with redevelopment specialist present. Patien tolerated treatment well. IVELISSE HERZOG MEDICAL RECEPTIONIST MEDICAL ASSISTANT
[2017-02-01 12:00] VITALS: BP 127/58
--- NOTE | 2017-02-01 12:00 | NUR ---
COMPLETE BED AND BATH DONE. AMBULATED TO CHAIR TIMES 1 ASSIST.
--- NOTE | 2017-02-01 13:53 | NUR ---
Patient requested visiting nurses upon discharge. Provided list of agencies, patient chose [facility] as he has had them in the past. Received order, faxed clinicals for referral.
[2017-02-01 16:00] VITALS: BP 127/65
--- NOTE | 2017-02-01 16:57 | NUR ---
ASSESSED PT FOR HOME O2. REMOVED PT'S 2L NC AT BEGINNING OF ROUNDS 98% - 1440 CHECKED PT'S BEDSIDE O2 AT REST - SPO2 85% - RA - 1544 [facility] [employer] RN NOTIFIED
[2017-02-01 20:00] VITALS: BP 121/59
--- NOTE | 2017-02-01 22:00 | NUR ---
PT GIVEN RESTORIL PER REQUEST FOR INSOMNIA AND PERCOCET FOR CHRONIC PAIN R/T PAST NECK AND BACK SURGERIES. PT SITTING AT SIDE OF BED WITH NO FURTHER COMPLAINTS. CALL LIGHT IS WITHIN REACH, WILL CONTINUE TO MONITOR.
[2017-02-02] VITALS: BP 119/68
--- NOTE | 2017-02-02 | NUR ---
PT RESTING IN BED, MEDICATIONS EFFECTIVE. CALL LIGHT IN REACH.
--- NOTE | 2017-02-02 04:00 | NUR ---
PT RESTING, RESPIRATIONS EASY, NO COMPLAINTS AT THIS TIME CALL LIGHT WITHIN REACH.
[2017-02-02 08:00] VITALS: BP 120/72
--- NOTE | 2017-02-02 08:00 | NUR ---
IN BED RESTING QUIETLY. AWAKENS TO TOUCH. [place]. NO S/S OF DISTRESS. SEE ASSESS. WILL CONT TO MONITOR. CALL LIGHT IN REACH.
--- NOTE | 2017-02-02 08:45 | NUR ---
HOME O2 ASSESSMENT. PRE BP: 126/64, HR 85, RR 18, PULSE OX 85% ON ROOM AIR AT REST. APPLIED 2 L/M NASAL CANNULA, SAT >94%. AMBULATED PATIENT IN HALLWAY WITH ASSIST OF PHYSICAL THERAPY. PULSE OX DECREASED TO 89% ON 2 L/M WHILE AMBULATING. INCREASED TO 3 L/M, PULSE OX 95% WHILE AMBULATING. POST BP: 126/64, HR 85, RR 18, PULSE OX 98% ON 2 L/M AT REST. RN NOTIFIED.
[2017-02-02 09:07] LABS: IMMUNOGLOBULIN IgE 002170 43 IU/mL (0-100); RHEUMATOID ARTHRITIS FACTOR 16.1 IU/mL (0.0-13.9)
--- NOTE | 2017-02-02 10:39 | NUR ---
PHYSICAL THERAPY Therapist arrives with patient coming out of bathroom on no O2 but was resting at 2L 02 prior to going into bathroom. Respiratory therapist was present this session monitoring O2 levels during exertion. Pt required 3L 02 during gait training today with WW. He compelted 80 feet x 2 at a slow pace and occasional standing rest breaks. His 02 remained at approx 95% during gait while talking. he did require verbal instruction to improve breathing technique to improve o2 utilization. He was left seated at edge of bed with Respiratory therapist and DO completing vitals upon therapy session completion with 2L 02 connected at wall pump. He reports no pain or discomfort upon completion. He was seen 1:1 with PSYCH ARNP. Hannah Suárez PTA.
[2017-02-02 12:00] VITALS: BP 113/60
[2017-02-02 16:00] VITALS: BP 145/74
[2017-02-02 20:00] VITALS: BP 128/72
--- NOTE | 2017-02-02 22:01 | NUR ---
Medicated with Restoril po prn for help with sleep and Percocet po prn for chronic generalized pain from past injuries. Will monitor effectiveness. Call light within reach.
--- NOTE | 2017-02-02 23:00 | NUR ---
Patient resting quietly in bed with eyes closed. PRN medications effective. Will continue to monitor. Call light within reach.
[2017-02-03] VITALS: BP 114/95
--- NOTE | 2017-02-03 00:52 | NUR ---
24 HR chart check completed.
[2017-02-03 06:20] LABS: HEMATOCRIT 28.4 % (42.0-52.0); HEMOGLOBIN 8.4 g/dl (14.0-18.0); MEAN CELL VOLUME 83.3 fl (80.0-94.0); MEAN CORPUSCULAR HGB 24.6 pg (27.0-31.0); MEAN CORPUSCULAR HGB CONC 29.6 g/dl (33.0-37.0); NUCLEATED RED BLOOD CELL 0.1 10*3/uL (0.0-0.0); NUCLEATED RED BLOOD CELL 1.1 % (0.0-0.0); PLATELET COUNT AUTOMATED 198 10*3/uL (130-400); RED BLOOD COUNT 3.41 10*6/uL (4.50-5.90); RED CELL DISTRI WIDTH 16.2 % (0-14.5); WHITE BLOOD COUNT 7.9 10*3/uL (4.8-10.8)
[2017-02-03 06:35] LABS: BUN 33 mg/dl (7-24); CHLORIDE 108 mmol/L (98-107); CREATININE 1.07 mg/dL (0.70-1.30); POTASSIUM 4.5 mmol/L (3.5-5.1); SODIUM 142 mmol/L (136-145)
[2017-02-03 07:38] LABS: PLATELET SUFFICIENCY NORMAL (NORMAL); POLYCHROMASIA SLIGHT; TOTAL CELLS COUNTED 100 #CELLS
[2017-02-03 08:00] VITALS: BP 116/89
[2017-02-03 12:00] VITALS: BP 146/66
[2017-02-03 16:00] VITALS: BP 136/68
[2017-02-03 20:00] VITALS: BP 143/67
--- NOTE | 2017-02-03 21:45 | NUR ---
Medicated with Percocet po prn for chronic generalized discomfort and Restoril po prn for help with sleep. Will monitor effectiveness. Call light within reach.
--- NOTE | 2017-02-03 22:45 | NUR ---
Patient resting quietly in bed with eyes closed. Restoril and Percocet effective. Will continue to monitor. Call light within reach.
[2017-02-04] VITALS: BP 137/74
--- NOTE | 2017-02-04 04:34 | NUR ---
24 HR chart check completed.
[2017-02-04 06:48] LABS: HEMATOCRIT 28.9 % (42.0-52.0); HEMOGLOBIN 8.4 g/dl (14.0-18.0); MEAN CELL VOLUME 83.3 fl (80.0-94.0); MEAN CORPUSCULAR HGB 24.2 pg (27.0-31.0); MEAN CORPUSCULAR HGB CONC 29.1 g/dl (33.0-37.0); MEAN PLATELET VOLUME 9.8 fl (9.6-12.3); NUCLEATED RED BLOOD CELL 0.1 10*3/uL (0.0-0.0); PLATELET COUNT AUTOMATED 191 10*3/uL (130-400); RED BLOOD COUNT 3.47 10*6/uL (4.50-5.90); RED CELL DISTRI WIDTH 16.5 % (0-14.5); WHITE BLOOD COUNT 7.1 10*3/uL (4.8-10.8)
[2017-02-04 07:21] LABS: POLYCHROMASIA SLIGHT; TOTAL CELLS COUNTED 100 #CELLS
[2017-02-04 07:22] LABS: PLATELET SUFFICIENCY NORMAL (NORMAL)
[2017-02-04 07:28] LABS: BUN 35 mg/dl (7-24); CHLORIDE 106 mmol/L (98-107); CREATININE 1.31 mg/dL (0.70-1.30); POTASSIUM 4.9 mmol/L (3.5-5.1); SODIUM 140 mmol/L (136-145)
--- NOTE | 2017-02-04 07:36 | NUR ---
Alert and oriented x3. Sitting up to side of bed for breakfast. Lungs diminished with scattered rhonchi. Denies pain. O2 intact via nc at 2l. See assessment.
[2017-02-04 08:00] VITALS: BP 129/78
--- NOTE | 2017-02-04 08:30 | NUR ---
Multiple Needle Stitcher in to see pt. No new needs or request at this time. When medically stable he will be discharged home with [facility].
--- NOTE | 2017-02-04 09:50 | NUR ---
PHYSICAL THERAPY Ed was seen this AM 1:1 for his therapy session and did well. All transfers were CG X 1, no LOB. Gait total 115' X 2, with wheeled walker, portable o2 at 2 L, and CG X 1, one sitting rest with this. End waith act Ex to bilateral LE of marching, Laq's and ankle pumps with cueing for each, Pt with call light and phone. PEG STANLEY FIGURE SKATER.
--- NOTE | 2017-02-04 11:08 | NUR ---
Home O2 assess: Rt assessed pt. and he was 95% on 2lnc, B/P 129/78 Pt. was placed on R.A. and his Spo2 dropped to 85% on R.A. after 15 minutes at rest. Pt. was placed back on 2lnc and his spo2 danuta to 96%. No adverse reactions were noted and patient apperaed to be comfortable.
--- NOTE | 2017-02-04 11:22 | NUR ---
OT evaluation completed at BS. OT at moderate complexity determined by chart review and evaluation
[2017-02-04 12:00] VITALS: BP 132/82
[2017-02-04 14:07] LABS: IGG SUBCLASS 1 461 mg/dL (248-810); IGG SUBCLASS 2 135 mg/dL (130-555); IGG SUBCLASS 3 56 mg/dL (15-102); IGG SUBCLASS 4 36 mg/dL (2-96)
[2017-02-04 15:09] LABS: ATYPICAL PANCA <1:20 titer (Neg:<1:20); CYTOPLASMIC (C-ANCA) <1:20 titer (Neg:<1:20); PERINUCLEAR (P-ANCA) <1:20 titer (Neg:<1:20)
[2017-02-04 16:00] VITALS: BP 148/73
[2017-02-04 16:11] LABS: ALDOLASE 002030 8.1 U/L (3.3-10.3); ANGIOTENSIN-CONVERTING ENZYME 8 U/L (14-82)
--- NOTE | 2017-02-04 17:42 | NUR ---
Spoke with pharmacy consultant regarding need for oscal. Barry in pyxis. She states it is in pyxis that the drawer is failed. I attempted to fix the drawer but it would not. It states requires maintenance. I called pharmacy again for med. States that she had fixed the drawer, which I informed her it would not open for me and it still requires maintenance. States she will send up the med and fix drawer again.
[2017-02-04 20:00] VITALS: BP 141/70
--- NOTE | 2017-02-04 23:30 | NUR ---
PT REQUESTING QUIETLY IN BED AT THIS TIME. PRN PAIN MED AND SLEEP AID EFFECTIVE.
[2017-02-05] VITALS (9 sets, daily range): BP systolic 109–136; BP diastolic 53–76
--- NOTE | 2017-02-05 00:25 | NUR ---
PT HAD A [address] OF VTACH. DR[address] ALVAREZ ON FLOOR AND NOTIFIED. NO N.O. RCVD AT THIS TIME. WILL MONITOR PT CLOSELY.
--- NOTE | 2017-02-05 03:01 | NUR ---
24 HR chart check completed.
[2017-02-05 06:36] LABS: HEMATOCRIT 28.8 % (42.0-52.0); HEMOGLOBIN 8.4 g/dl (14.0-18.0); MEAN CORPUSCULAR HGB 24.5 pg (27.0-31.0); MEAN CORPUSCULAR HGB CONC 29.2 g/dl (33.0-37.0); MEAN PLATELET VOLUME 9.7 fl (9.6-12.3); NUCLEATED RED BLOOD CELL 0.1 10*3/uL (0.0-0.0); NUCLEATED RED BLOOD CELL 0.7 % (0.0-0.0); PLATELET COUNT AUTOMATED 181 10*3/uL (130-400); RED BLOOD COUNT 3.43 10*6/uL (4.50-5.90); RED CELL DISTRI WIDTH 16.7 % (0-14.5); WHITE BLOOD COUNT 7.2 10*3/uL (4.8-10.8)
[2017-02-05 07:03] LABS: BUN 32 mg/dl (7-24); CHLORIDE 106 mmol/L (98-107); CREATININE 1.09 mg/dL (0.70-1.30); PHOSPHOROUS 4.6 mg/dL (2.5-4.9); POTASSIUM 4.9 mmol/L (3.5-5.1); SODIUM 141 mmol/L (136-145)
[2017-02-05 07:23] LABS: PLATELET SUFFICIENCY NORMAL (NORMAL); POLYCHROMASIA SLIGHT; TOTAL CELLS COUNTED 100 #CELLS
--- NOTE | 2017-02-05 07:40 | NUR ---
VITAL SIGNS STABLE. A&O X3. SKIN WARM, PINK, DRY AND INTACT. JACOBO. HEART SOUNDS ARE NORMAL. CRACKLES NOTED THROUGHOUT LUNGS. PO2 100% ON 3L OF O2. RESPIRATIONS 20. ABDOMEN SOFT, NON-TENEDER, NON-DISTENDED. BOWEL SOUNDS X4. +2 BILATERAL PITTING. IV SITE IN RIGHT ARM DRY AND INTACT. NO COMPLIANTS OF PAIN. PLEASANT AND COOPERATIVE. PATIENT TO OR VIA CART. CONDIOTN STABLE. [facility]
--- NOTE | 2017-02-05 08:00 | NUR ---
PT IN OR.
--- NOTE | 2017-02-05 10:09 | NUR ---
PATIENT REMAINS IN OR AT THIS TIME. [facility]
--- NOTE | 2017-02-05 11:00 | NUR ---
PATIENT RETURN TO FLOOR. HEAD TO ASSESSMENT PREFORMED. VITALS ARE STABLE. A&O X3. SKIN WARM, PINK, DRY AND INTACT. JACOBO. HEART SOUNDS ARE NORMAL. CRACKLES THROUGHOUT LUNGS. RESPIRTATIONS 20. PO2 92% ON 3L O2 PER NC. ABDOMEN SOFT, NON-TENDER, NON-DISTENDED. BS X4. PATIENT REPORTS PAIN IN THE LEFT SIDE OF THE RIBS. RATES 10/10. PRODUCTIVE COUGH OF BLOOD AND SPUTUM. WILL CONTINUE TO ASSESS. [facility]ASH [facility]
--- NOTE | 2017-02-05 11:08 | NUR ---
PATIENT NOT IN ROOM IN AM WITH NURSING REPORTING THAT PATIENT WAS IN THE OR. KP MEDELLIN/Jose Carlos
[2017-02-05 11:24] LABS: BF LYMPHOCYTES 7 %; BF MACROPHAGES 71 %; BF MONOCYTES 1 %; BF NEUTROPHILS 19 %
--- NOTE | 2017-02-05 11:29 | NUR ---
PHYSICAL THERAPY Patient refused therapy this date due to just coming back from a bronchyscopy ands not feeling well. Patient also has discomfort from the procedure. IVELISSE HERZOG FOUR ROLL CALENDER OPERATOR
--- NOTE | 2017-02-05 11:52 | NUR ---
MORPHINE SULFATE 2MG GIVEN IV PUSH BY KATY RACHEL RN FOR PAIN IN LEFT RIBS RATING 10/10. WILL CONINTUE TO ASSESS. CASH [facility].
--- NOTE | 2017-02-05 12:30 | NUR ---
REASSESSED PAIN. PATIENT RATES PAIN A 4/10. PATIENT STATES, "I FEEL LIKE THE MORPHINE IS WORKING. MAYBE I CAN GET SOME SLEEP." MORPHINE SULFATE 2MG IV PUSH EFFECTIVE. WILL CONTINUE TO ASSESS. CASH MIRELES
--- NOTE | 2017-02-05 13:16 | NUR ---
Advertising Operations Coordinator in to see pt. No new needs or request at this time. When medically stable he will be discharged home with [facility].
--- NOTE | 2017-02-05 22:30 | NUR ---
PT STATES THAT PERCOCET WAS EFFECTIVE FOR PAIN RELIEF.
[2017-02-06] VITALS: BP 133/64
--- NOTE | 2017-02-06 00:10 | NUR ---
PT MEDICATED WITH PRN RESTORIL FOR C/O INSOMNIA.
[2017-02-06 06:46] LABS: HEMATOCRIT 27.8 % (42.0-52.0); HEMOGLOBIN 8.2 g/dl (14.0-18.0); MEAN CELL VOLUME 83.2 fl (80.0-94.0); MEAN CORPUSCULAR HGB 24.6 pg (27.0-31.0); MEAN CORPUSCULAR HGB CONC 29.5 g/dl (33.0-37.0); MEAN PLATELET VOLUME 10.6 fl (9.6-12.3); NUCLEATED RED BLOOD CELL 0.1 10*3/uL (0.0-0.0); NUCLEATED RED BLOOD CELL 0.6 % (0.0-0.0); PLATELET COUNT AUTOMATED 176 10*3/uL (130-400); RED BLOOD COUNT 3.34 10*6/uL (4.50-5.90); RED CELL DISTRI WIDTH 17.1 % (0-14.5); WHITE BLOOD COUNT 8.8 10*3/uL (4.8-10.8)
[2017-02-06 07:30] LABS: CHLORIDE 103 mmol/L (98-107); PHOSPHOROUS 4.4 mg/dL (2.5-4.9); POTASSIUM 4.3 mmol/L (3.5-5.1); SODIUM 137 mmol/L (136-145)
[2017-02-06 07:38] LABS: BUN 31 mg/dl (7-24); CREATININE 1.13 mg/dL (0.70-1.30)
[2017-02-06 07:48] LABS: MICROCYTOSIS SLIGHT; PLATELET SUFFICIENCY NORMAL (NORMAL); POLYCHROMASIA SLIGHT; TOTAL CELLS COUNTED 100 #CELLS
[2017-02-06 08:00] VITALS: BP 146/90
--- NOTE | 2017-02-06 08:00 | NUR ---
RESTING QUIETLY IN BED, NO C/O NO DISTRESS NOTED. HOB ELEVATED WITH O2 ON. VOICE HOARSE. WILL CONTINUE TO MONITOR.
--- NOTE | 2017-02-06 08:30 | NUR ---
Automotive Designer in to see pt. No new needs or request at this time. When medically stable he will be discharged home with [facility].
--- NOTE | 2017-02-06 09:33 | NUR ---
RN NOTIFIED THAT PT DOES QUALIFY FOR HOME O2, NEEDS ORDER, AND NOT LET PT GO HOME WITHOUT O2.
--- NOTE | 2017-02-06 11:10 | NUR ---
PHYSICAL THERAPY Ed seen this AM for his therapy gait. All transfers were CGA X 1, no LOB. Gait total 105' X 2, with one sitting rest just to rest, gait with wheeled walker cueing for gait, walker, turn safety and had no LOB with this. PEG STANLEY PLATFORM MATERIAL HANDLING SUPERVISOR.
--- NOTE | 2017-02-06 11:11 | NUR ---
Patient has intact scabs noted below the right eye and on the forehead above the right eye. No drainage noted at present time. No sign of symptoms of redness. No ecchymosis present. Continue current treatments.
[2017-02-06 12:00] VITALS: BP 126/72
--- NOTE | 2017-02-06 12:00 | NUR ---
NO C/O NO DISTRESS NOTED.
--- NOTE | 2017-02-06 14:57 | NUR ---
QUIET DAY, NO C/O NO DISTRESSED. SEE SHIFT ASSESSMENT.
--- NOTE | 2017-02-06 15:30 | NUR ---
ASSUMED CARE OF PATIENT. PATIENT A&OX3 AND AMBULATORY WITH ASSIST. PATIENT DENIES ANY PAIN OR DISCOMFORT UPON ASSESSMENT. PATIENT IS [place], BUT RESPONDS APPROPRIATELY. PATIENT VERBALIZES BEING ABLE TO AMBULATE EASIER AND WALKED WITH PT THIS MORNING. CALL LIGHT WITHIN REACH. SEE ASSESSMENT.
[2017-02-06 16:00] VITALS: BP 132/60
[2017-02-06 16:13] LABS: ACID FAST SMEAR Negative (.); ACID FAST SPEC PROCESSING Concentration (.)
[2017-02-06 16:13] LABS: ACID FAST SMEAR Negative (.); ACID FAST SPEC PROCESSING Concentration (.)
[2017-02-06 20:00] VITALS: BP 156/64
--- NOTE | 2017-02-06 22:52 | NUR ---
MEDICATED WITH PRN RESTORIL ORDERD FOR C/O INSOMNIA
--- NOTE | 2017-02-06 23:46 | NUR ---
MEDICATED WITH PRN PERCOCET ORDERED FOR C/O BACK AND NECK PAIN RATED AN 8/10
[2017-02-07] VITALS: BP 159/57
--- NOTE | 2017-02-07 00:28 | NUR ---
MEDICATED WITH PRN PERCOCET FOR C/O BACK AND NECK PAIN RATED AN 8/10
--- NOTE | 2017-02-07 00:33 | NUR ---
EARLIER MEDICATIONS APPEAR EFFECITVE. PATIENT IS SLEEPING. RESPIRATIONS EASY/REG. NO SXS OF DISTRESS NOTED. CALL LIGHT IN REACH.
--- NOTE | 2017-02-07 01:50 | NUR ---
SLEEPING, NO SXS OF DISTRESS, CALL LIGHT IN REACH
[2017-02-07 07:38] LABS: HEMOGLOBIN 8.2 g/dl (14.0-18.0); MEAN CELL VOLUME 84.1 fl (80.0-94.0); MEAN CORPUSCULAR HGB 24.6 pg (27.0-31.0); MEAN CORPUSCULAR HGB CONC 29.3 g/dl (33.0-37.0); MEAN PLATELET VOLUME 10.2 fl (9.6-12.3); NUCLEATED RED BLOOD CELL 0.5 % (0.0-0.0); PLATELET COUNT AUTOMATED 152 10*3/uL (130-400); RED BLOOD COUNT 3.33 10*6/uL (4.50-5.90); RED CELL DISTRI WIDTH 17.1 % (0-14.5); WHITE BLOOD COUNT 8.2 10*3/uL (4.8-10.8)
[2017-02-07 07:56] LABS: BUN 27 mg/dl (7-24); CHLORIDE 104 mmol/L (98-107); PHOSPHOROUS 4.4 mg/dL (2.5-4.9); POTASSIUM 4.3 mmol/L (3.5-5.1); SODIUM 140 mmol/L (136-145)
[2017-02-07 08:00] VITALS: BP 158/66
[2017-02-07 08:11] LABS: PLATELET SUFFICIENCY NORMAL (NORMAL); POLYCHROMASIA SLIGHT; TOTAL CELLS COUNTED 100 #CELLS
--- NOTE | 2017-02-07 09:00 | NUR ---
Auto Painter in to see pt. No new needs or request at this time. When medically stable he will be discharged home with [facility].
--- NOTE | 2017-02-07 09:12 | NUR ---
PHYSICAL THERAPY Ed seen this AM 1:1 for his therapy gait. Pt wanted to try without his o2 this AM gait. Gait 60' with wheelwd walker MIN A X 1 and Pt o2 droping to 81%, Pt put on 3 L portable o2 gait back to his bed and in sitting o2 was 92%, no LOB. Pt will need home o2. PEG STANLEY ACUPRESSURIST.
--- NOTE | 2017-02-07 11:09 | NUR ---
Pt was seen in OT x 28 minutes beginning with supine to sit at EOB independently. After instructions, pt performed 10 reps of green theraband x 3 sets to improve strength & endurance for ADLs with rest breaks due to SOB. Provided pt with education/demonstration for deep breathing exercises to enhance tolerance for ADL tasks. Pt performed deep breathing exercises with 1 cue for correct procedures. Sit to stand from bedside & sttod for approx 5 minutes before fatiguing with close supervision. Call light & O2 in place. Continue with POC. Geraldine PA/Jose Carlos
[2017-02-07 12:00] VITALS: BP 128/68
--- NOTE | 2017-02-07 13:52 | NUR ---
In to see patient to discuss short term rehab stay. Patient is agreeable. Provided list of facilities, patient stated he would like to go to [facility]. Contacted [facility] and faxed referral. Waiting on acceptance, will require precert.
[2017-02-07 16:00] VITALS: BP 128/59
[2017-02-07 20:00] VITALS: BP 148/62
--- NOTE | 2017-02-07 20:28 | NUR ---
PT HAS 3+ PITTING EDEMA BLE AND GEN EDEMA TO ARMS AND HANDS. DR JORGE NOTIFIED.
--- NOTE | 2017-02-07 21:45 | NUR ---
MEDICATED WITH PERCOCET AND RESTORIL PER PRN ORDER FOR C/O PAIN AND INSOMNIA.
[2017-02-08] VITALS: BP 135/68
--- NOTE | 2017-02-08 04:00 | NUR ---
RESTING IN BED WITH EYES CLOSED. NO SIGNS OR SYMPTOMS OF DISTRESS NOTED AT THIS TIME. AROUSES TO VERBAL STIMULI. WILL CONTINUE TO MONITOR. CALL LIGHT IN REACH.
[2017-02-08 07:34] LABS: HEMATOCRIT 28.5 % (42.0-52.0); HEMOGLOBIN 8.3 g/dl (14.0-18.0); MEAN CELL VOLUME 84.3 fl (80.0-94.0); MEAN CORPUSCULAR HGB 24.6 pg (27.0-31.0); MEAN CORPUSCULAR HGB CONC 29.1 g/dl (33.0-37.0); MEAN PLATELET VOLUME 10.2 fl (9.6-12.3); NUCLEATED RED BLOOD CELL 0.4 % (0.0-0.0); PLATELET COUNT AUTOMATED 152 10*3/uL (130-400); RED BLOOD COUNT 3.38 10*6/uL (4.50-5.90); RED CELL DISTRI WIDTH 17.5 % (0-14.5); WHITE BLOOD COUNT 9.2 10*3/uL (4.8-10.8)
--- NOTE | 2017-02-08 07:40 | NUR ---
OCCUPATIONAL THERAPY CO-SIGN I approve of the Occupational Therapy notes written above. MYRA ESPAÑA OTR/Jose Carlos
[2017-02-08 07:55] LABS: BUN 29 mg/dl (7-24); CHLORIDE 99 mmol/L (98-107); CREATININE 1.21 mg/dL (0.70-1.30); POTASSIUM 4.1 mmol/L (3.5-5.1); SODIUM 139 mmol/L (136-145)
[2017-02-08 08:00] VITALS: BP 123/56
[2017-02-08 08:15] LABS: OVALOCYTES FEW; PLATELET SUFFICIENCY NORMAL (NORMAL); POLYCHROMASIA SLIGHT; TOTAL CELLS COUNTED 100 #CELLS
--- NOTE | 2017-02-08 08:45 | NUR ---
Hand Thermal Cutter in to see patient. When medically stable he will be discharged to [facility].
--- NOTE | 2017-02-08 08:56 | NUR ---
Patient accepted to [facility], hospital exemption completed online in hens system. Patient can go when medically stable for discharge.
--- NOTE | 2017-02-08 09:00 | NUR ---
Patient resting quietly with no c/o discomfort. Respirations easy and regular. Vital signs stable. No overt distress. ANTONIO EM R
--- NOTE | 2017-02-08 09:19 | NUR ---
Patient accepted to [facility], hospital exemption completed online in hens system, patient requires precert which has been started, waiting on auth.
--- NOTE | 2017-02-08 09:25 | NUR ---
PHYSICAL THERAPY Ed seen this AM X 2, having his breakfast, came back and hurse passing his meds. PEG STANLEY BRASS ROLLER.
--- NOTE | 2017-02-08 10:51 | NUR ---
[facility] and can go when ready for discharge, however [facility] stated it will have to be later in the day because they are waiting on a discharge.
[2017-02-08] MEDS ORDERED: LASIX40 MG PO (11:16)
[2017-02-08] MEDS ORDERED: FEROSUL325 MG PO (11:16)
[2017-02-08] MEDS ORDERED: OYSTER SHELL 51 EACH PO (11:16)
[2017-02-08] MEDS ORDERED: Carafate1 GM/10 ML PO (11:16)
[2017-02-08] MEDS ORDERED: PERCOCET 5-3251 EACH PO (11:16)
[2017-02-08] MEDS ORDERED: B12,B-12,B 12500 MC1 PO (11:16)
[2017-02-08] MEDS ORDERED: DOXYCYCLINE100 M3 PO (11:20)
[2017-02-08] MEDS ORDERED: PREDNISONE10 MG PO (11:20)
[2017-02-08] MEDS ORDERED: OXYGEN NAS (11:23)
[2017-02-08 12:00] VITALS: BP 132/61
--- NOTE | 2017-02-08 12:59 | NUR ---
PATIENT SEEN 1:1 OT 29 MINUTES. PATIENT IDENTIFIED BY NAME AND DATE OF . PATIENT IN BED UPON ARRIVAL. COMPLETED SUPINE TO SIT EOB SBA. COMPLETED LB DRESSING PATIENT MAX A/ DEP TO ESAU B NON SLIP SOCKS FOR FALL PREVENTION WITH STANDING TASKS. PATIENT DEMONSTRATED INCREASE DIFFICULTY REACHING B FEET WITH MIN A DYNAMIC SIT BALANCE. COMPLETED SIT TO STAND FROM BED CGA. PATIENT COMPLETED STAND TOLERANCE USE FWW REACHING FOR ITEMS VARIOUS LEVELS CGA WITH STAND TOLERANCE 5 MINUTES THIS DATE WITH C/O FATIGUE. PATIENT COMPLETED FUNCITONAL AMBULATION USE FWW CGA WITH ASSISTANCE FOR IV POLE AND PORTABLE 02 TANK MANAGEMENT THROUGH HALLWAY. PATIENT IN BED WITH CALL LIGHT. KP MEDELLIN/ Jose Carlos
--- NOTE | 2017-02-08 13:53 | NUR ---
PHYSICAL THERAPY Patient presented in supine in bed with report of being tired. Patient performed supine to standing transfer with Close Supervision. Patient performed standing tolerance for 5 minutes at W/W with CLOSE SUPERVISION. Patient performed gait with W/W for 200' x 1 and spO2 and Close Supervision. 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
--- NOTE | 2017-02-08 15:07 | NUR ---
PHYSICAL THERAPY CO-SIGN I approve of the Phyical Therapy notes written above. KEITH OCHOA PT
[2017-02-08 16:00] VITALS: BP 139/64
--- NOTE | 2017-02-08 17:43 | NUR ---
REPORT CALLED TO ADDISON AT [facility].
--- NOTE | 2017-02-08 17:43 | NUR ---
Discharge instructions reviewed with patient/family. Patient receptive and verbalizes understanding. Follow-up care arranged. Written instructions given to patient/family. ANTONIO EM
--- NOTE | 2017-02-13 07:44 | NUR ---
OCCUPATIONAL THERAPY CO-SIGN I approve of the Occupational Therapy notes written above. MYRA ESPAÑA OTR/Jose Carlos
== END 2017-02-08 17:43 | disposition other institution (70) | DRG 853 ==
LOC: ED 15:08 → EDHOLD 18:46 → 5E 18:46
PROVIDERS: Family Medicine; Internal Medicine; Internal Medicine Critical Care Medicine; Internal Medicine Nephrology; Nurse Practitioner Family; Student in an Organized Health Care Education/Training Program; ADMIT Student in an Organized Health Care Education/Training Program
PROC: 30233N1 Transfusion of Nonautologous Red Blood Cells into Peripheral Vein, Percutaneous Approach (ICD-10-PCS; principal; 2017-01-30)
PROC: 0DJ08ZZ Inspection of Upper Intestinal Tract, Via Natural or Artificial Opening Endoscopic (ICD-10-PCS; 2017-01-31)
PROC: 0HBRXZZ Excision of Toe Nail, External Approach (ICD-10-PCS; 2017-02-01)
PROC: 0BC88ZZ Extirpation of Matter from Left Upper Lobe Bronchus, Via Natural or Artificial Opening Endoscopic (ICD-10-PCS; 2017-02-05)
PROC: 0BC28ZZ Extirpation of Matter from Carina, Via Natural or Artificial Opening Endoscopic (ICD-10-PCS; 2017-02-05)
PROC: 0BC98ZZ Extirpation of Matter from Lingula Bronchus, Via Natural or Artificial Opening Endoscopic (ICD-10-PCS; 2017-02-05)
PROC: 0BC58ZZ Extirpation of Matter from Right Middle Lobe Bronchus, Via Natural or Artificial Opening Endoscopic (ICD-10-PCS; 2017-02-05)
PROC: 0BC48ZZ Extirpation of Matter from Right Upper Lobe Bronchus, Via Natural or Artificial Opening Endoscopic (ICD-10-PCS; 2017-02-05)
PROC: 0B9J8ZX Drainage of Left Lower Lung Lobe, Via Natural or Artificial Opening Endoscopic, Diagnostic (ICD-10-PCS; 2017-02-05)
PROC: 0BC68ZZ Extirpation of Matter from Right Lower Lobe Bronchus, Via Natural or Artificial Opening Endoscopic (ICD-10-PCS; 2017-02-05)
DX: A41.9 Sepsis, unspecified organism (principal); N17.0 Acute kidney failure with tubular necrosis; J18.9 Pneumonia, unspecified organism; E11.51 Type 2 diabetes mellitus with diabetic peripheral angiopathy without gangrene; I42.9 Cardiomyopathy, unspecified; E87.2 Acidosis; E83.42 Hypomagnesemia; E11.65 Type 2 diabetes mellitus with hyperglycemia; J84.10 Pulmonary fibrosis, unspecified; J44.0 Chronic obstructive pulmonary disease with (acute) lower respiratory infection; J44.1 Chronic obstructive pulmonary disease with (acute) exacerbation; Z79.84 Long term (current) use of oral hypoglycemic drugs; R65.20 Severe sepsis without septic shock; J84.89 Other specified interstitial pulmonary diseases; F17.220 Nicotine dependence, chewing tobacco, uncomplicated; D50.9 Iron deficiency anemia, unspecified; K21.9 Gastro-esophageal reflux disease without esophagitis; E78.5 Hyperlipidemia, unspecified; I10 Essential (primary) hypertension; I25.10 Atherosclerotic heart disease of native coronary artery without angina pectoris; W18.39XA Other fall on same level, initial encounter; J20.9 Acute bronchitis, unspecified; K29.70 Gastritis, unspecified, without bleeding; K44.9 Diaphragmatic hernia without obstruction or gangrene; B35.1 Tinea unguium; I87.2 Venous insufficiency (chronic) (peripheral); Z96.1 Presence of intraocular lens; F09 Unspecified mental disorder due to known physiological condition; K25.9 Gastric ulcer, unspecified as acute or chronic, without hemorrhage or perforation; Z83.3 Family history of diabetes mellitus; Y93.89 Activity, other specified; Y92.89 Other specified places as the place of occurrence of the external cause; Y99.8 Other external cause status; Z91.041 Radiographic dye allergy status; Z79.899 Other long term (current) drug therapy; Z79.82 Long term (current) use of aspirin; I25.2 Old myocardial infarction; Z85.828 Personal history of other malignant neoplasm of skin; Z98.61 Coronary angioplasty status; Z98.49 Cataract extraction status, unspecified eye; Z82.49 Family history of ischemic heart disease and other diseases of the circulatory system; Z87.01 Personal history of pneumonia (recurrent); Z71.6 Tobacco abuse counseling; Z93.1 Gastrostomy status; S00.81XA Abrasion of other part of head, initial encounter; S80.212A Abrasion, left knee, initial encounter; S80.211A Abrasion, right knee, initial encounter

== ENCOUNTER 2017-07-27 18:56 | Inpatient (IN) | payer OTHER ==
[~2017-07-27] VITALS: Ht 177.8 cm; Wt 76.3 kg
--- NOTE | ~2017-07-27 | EKG ---
[place], [place] ELECTROCARDIOGRAM REPORT NAME: XIANG ORNELAS UNIT #: [id number] ROOM: [facility] DOCTOR: ABHISHEK MARTINEZ MD,LYNETTE BIRTHDATE: [birth year] DOS: 07/27/2017 TIME: 7:22 p.m. Sinus tachycardia noted, heart rate of 108 beats per minute. Nonspecific ST-T changes noted with evidence of multiform PVCs as well. Possibility of old inferior myocardial infarction was also considered with anterolateral wall as well, which appeared to be old. LYNETTE WEISS MD CM:EKGRPT:ELECTROCARDIOGRAM REPORT [id number] LYNETTE MARTINEZ MD
--- NOTE | ~2017-07-27 | CON ---
[place], [place] REPORT OF CONSULTATION NAME: XIANG ORNELAS UNIT #: [id number] ROOM: [facility] DOCTOR: LYNETTE NOVAK MD BIRTHDATE: [birth year] DOS: 07/28/2017 PULMONARY CRITICAL CARE EVALUATION AND MANAGEMENT CONSULTATION REQUESTED BY: Hospitalist Service. REASON FOR CONSULTATION: Assessment of shortness of breath. HISTORY OF PRESENT ILLNESS: This 82-year-old white male patient who has been brought to the hospital and admitted under the hospitalist service on 07/27/2017. The patient was brought to the hospital as the patient has been reported symptoms of generalized weakness, fatigue with progressive increased shortness of breath occurring for the past couple of weeks. The patient is also noted coughing white sputum expectoration. The patient denies symptoms of chest pain or hemoptysis, noted progressive generalized weakness, fatigue with worsening shortness of breath reported. The patient has been brought to the hospital for further medical management. The patient had a chest x-ray reported with finding of possibility of pneumonia. The patient had been currently treated in the hospital. The patient receiving the BiPAP because of the medical management of respiratory failure. He has been noted comfortable at this time, awake and alert and follows vocal commands. REVIEW OF SYSTEMS: Limited because of the BiPAP use by the patient. The patient reported symptoms of fatigue and tiredness. History was also assisted by the patient's spouse. The patient has not been noted any symptoms of fever or chills at home. There were no symptoms of discharge, pain or loss of vision. EARS, NOSE, THROAT SYMPTOMS: No sore throat, hoarseness, otalgia, postnasal drainage or epistaxis. CARDIOVASCULAR: Progressive edema of lower extremity noted recently. There were symptoms of anginal pain. GASTROINTESTINAL SYMPTOMS: There were no symptoms reported for nausea, vomiting, diarrhea, abdominal pain, hematemesis, melena, or hematochezia. SKIN: Not noted any symptoms or any abdominal lesions, rashes or itching. CENTRAL NERVOUS SYSTEM: Generalized weakness was reported. There were no focal neurologic deficits reported. Remaining systems were reviewed, they were noted all negative. PAST MEDICAL HISTORY: 1. Noted previous hospitalization in this hospital for the management of interstitial lung disease with acute respiratory failure, overall debility and other problem was treated after the hospitalization in January and later on state in the [facility] facility at [facility] and subsequently discharged the patient after achieving his baseline recovery of his functional status. 2. History of known COPD. 3. Possible interstitial lung disease as well. 4. Type 2 diabetes mellitus. 5. Cardiomyopathy with left ventricular ejection fraction noted 40% in the past. [place], [place] REPORT OF CONSULTATION NAME: XIANG ORNELAS UNIT #: [id number] ROOM: [facility] DOCTOR: ABHISHEK MARTINEZ MD,[facility] BIRTHDATE: [birth year] 6. Previous myocardial infarction. 7. Essential hypertension. 8. Hypercholesterolemia. 9. Generalized debility. 10. Use of tobacco products previously as cigarette smoking later on chewing of tobacco. PAST SURGICAL HISTORY: 1. Diskectomy of the patient's cervical spine and lumbar spine. 2. Cataract extraction with lens implantation. 3. Cardiac catheterization and right coronary artery stents insertion. 4. Therapeutic bronchoscopy done in 01/2017. SOCIAL HISTORY: The patient is , has 4 children, lived at home. Smoking noted from age of [age] years old, 2 packs of cigarettes per day that was discontinued approximately 21 years ago. There was no history of illicit drug use or any alcohol use. FAMILY HISTORY: The patient reported for diabetes mellitus. CURRENT MEDICATIONS: Administered the patient noted use of Lipitor, ferrous sulfate, Solu-Medrol 60 mg q.8 hours, Lovenox 30 mg subcutaneous daily, DuoNeb q.4h., Rocephin, Zithromax, and other p.r.n. medications. DRUG ALLERGIES: ALLERGY TO THE IODINE. PHYSICAL EXAMINATION: GENERAL: An 82-year-old male currently resting in the bed, use of BiPAP noted at the bedside. Full face mask. Height of 5 feet 10 inches, weight of 76 kg, BMI 24. VITAL SIGNS: Normal temperature noted since admission, respiratory rate of 34-24, heart rate of 104-105, blood pressure 92/57-120/86. Pulse oxygen saturation 4 liters 92% saturation. Room air was 83% on admission. HEENT: Edentulous status. NECK: Supple. Head was atraumatic. Eyes nonicterus. CARDIOVASCULAR: S1, S2 audible. LUNGS: Noted with generally diminished breath sounds in the lower lungs was noted with scattered crackles. Occasional wheezing. ABDOMEN: Soft, nontender. EXTREMITIES: Shows 2+ pitting edema as well. VISIBLE SKIN: No lesions or rashes. MUSCULOSKELETAL SYMPTOMS. Without any current acute deformities. CENTRAL NERVOUS SYSTEM: The patient was noted awake and alert with generalized weakness. There was no gross focal neurologic deficit present. LABORATORY DATA: Reviewed for this admission. The lactic acid on admission noted 2.0. The CBC of 07/27/2017, WBC count of 6.3, hemoglobin 12 and hematocrit were normal. Platelet count 94,000. PT/INR normal on 07/27/2017. CMP on 07/27/2017, BUN 44, creatinine 1.92, glucose 301. Troponin 0.60. LFT was normal. Second set of troponin 0.59. The arterial blood gas that was done [place], [place] REPORT OF CONSULTATION NAME: XIANG ORNELAS UNIT #: [id number] ROOM: [facility] DOCTOR: ABHISHEK MARTINEZ MD,[facility] BIRTHDATE: [birth year] at midnight, pH of 7.42, pCO2 of 28, pO2 of 73 on 4 liter nasal cannula. Lactic acid was noted 7.4, later on 2.4 and then 1.3. CBC this morning, WBC count remains normal, hemoglobin 11, hematocrit 35.8, platelet count of 82,000. BMP that was done 07/28/2017 noted as BUN 43, creatinine 1.59. The chest x-ray just one view was done, showed some pulmonary venous congestion marking with possibility of pleural fluid was also noted bilaterally. IMPRESSION: 1. The patient will be currently admitted to the hospital noted with severe acute hypoxic respiratory failure result of most likely congestive heart failure, possibility of pneumonia cannot be completely excluded versus compression elected lower lungs. Ultrasound of the chest was performed shows [id number] right pleural fluid and small left-sided pleural effusion. 2. The patient's lactic acidosis, secondary to hypoperfusion with possibility of sepsis cannot be completely excluded. 3. The patient noted general debility. 4. Interstitial lung disease, which has been noted previously, at this time further workup was not done. 5. Past history of nicotine use. 6. Acute exacerbation of chronic obstructive pulmonary disease was also seen. 7. The patient with chronic kidney disease related to the current intravascular volume depletion. PLAN OF MANAGEMENT: BiPAP for the patient will be continued on current settings 02/01 for the medical management of hypoxia. The patient was ordered the sputum culture and the other cultures. Continue antibiotic today as well. Pleural fluid to be monitored radiologically with the ultrasound as well as necessary. At this time, thoracentesis would not be needed. The patient has been ordered the echocardiogram to be repeated to assess left ventricular ejection fraction noted with congestive heart failure with systolic dysfunction as well. Overall debility noted multifactorial as well. Discontinue intravenous fluid. Continue the BiPAP for the patient. Repeat another chest x-ray portable in the morning or consider obtaining CT scan of the chest. Other additional treatment changes will be planned and to be done based on the progression of the illness. Assessment and management has been discussed in detail with the patient's spouse and other family members at the bedside. Aspiration precautions. Total time pulmonary critical care evaluation and management for the patient is 36 minutes. [place], [place] REPORT OF CONSULTATION NAME: XIANG ORNELAS UNIT #: [id number] ROOM: [facility] DOCTOR: LYNETTE NOVAK MD BIRTHDATE: [birth year] LYNETTE WEISS MD CM:CONSTR:REPORT OF CONSULTATION 1533 07/28/17 4859 interface
--- NOTE | ~2017-07-27 | CON ---
[place], [place] REPORT OF CONSULTATION NAME: XIANG ORNELAS UNIT #: [id number] ROOM: [facility] DOCTOR: YESSICA WELLS MD BIRTHDATE: [birth year] DOS: 07/29/2017 REASON FOR CONSULTATION: Dyspnea, acute cardiomyopathy. HISTORY OF PRESENT ILLNESS: The patient is an 82-year-old man who does have a history of atherosclerotic heart disease. He claims that he had a heart attack in his 30s, but those records are not currently available. He was hospitalized with an acute inferior ST elevation myocardial infarction on 04/12/2015. Cardiac catheterization was done emergently. The left main showed no stenosis. The LAD had minimal luminal disease. The circumflex had moderate luminal disease. There was a 40% stenosis in an obtuse marginal. The dominant right coronary artery had a 95% mid vessel stenosis. Left ventricular angiography showed inferior hypokinesis. The patient underwent angioplasty followed by placement of a 2.75 x 28 mm Alpine drug-eluting stent. The patient subsequently underwent echocardiography on 07/03/2016, which showed normal left ventricular size with inferior septal hypokinesis. The remainder of the ventricle contracted normally. Ejection fraction was 65-70% with stage 1 diastolic relaxation abnormalities. The patient presents now with several weeks of worsening dyspnea. The patient cannot say when exactly he became symptomatic. He presented to the Emergency Room where he was found to have an abnormal chest x-ray indicating bilateral pneumonias along with a small pleural effusion and probable vascular congestion. Today, an echocardiogram was done as part of his assessment and showed a dilated left ventricle with global hypokinesis and abnormal septal motion consistent with right ventricular overload. The right ventricle was also dilated and globally hypokinetic. The atria were also hypokinetic. Left ventricular ejection fraction was estimated to be 10% with stage III diastolic dysfunction. Currently, the patient feels tightness in his chest. He is breathless and coughing frequently. The cough is mildly productive. He denies fevers, but states that he is chilled all of the time. He feels very weak. PAST MEDICAL HISTORY: Includes: 1. Coronary artery disease. The patient reportedly had an [place] in his 30s, but those records are not available. 2. Acute inferior ST elevation myocardial infarction, 04/12/2015. 3. Emergent cardiac catheterization, 04/12/2015; left main showed no stenosis; LAD had minimal luminal irregularities; circumflex had moderate luminal disease; there was a 40% stenosis in an obtuse marginal; the dominant right coronary artery had a 95% mid vessel stenosis. Left ventriculography showed inferior hypokinesis. The patient underwent angioplasty with placement of a 2.75 x 28 mm Alpine drug-eluting stent. 4. Hypertension. 5. Hyperlipidemia. 6. Type 2 diabetes mellitus. 7. Gastroesophageal reflux disease. 8. Degenerative joint disease. 9. Work injury, 1980, which required multiple back and neck surgeries. [place], [place] REPORT OF CONSULTATION NAME: XIANG ORNELAS UNIT #: [id number] ROOM: [facility] DOCTOR: YESSICA WELLS MD BIRTHDATE: [birth year] 10. Status post removal of skin cancer from his neck. The patient had no chemotherapy or radiation. 11. Status post bilateral cataract resections. 12. History of cigarette abuse. The patient quit over 25 years ago. 13. Hospitalization, July 2017, with bilateral pneumonia and respiratory failure. 14. Echocardiogram, 07/29/2017; dilated left ventricle with global hypokinesis; estimated ejection fraction 10%; dilated right atrium, right ventricle and left atrium with decreased right ventricular systolic function; moderate to severe mitral insufficiency; moderate tricuspid insufficiency. FAMILY HISTORY: Negative for early coronary artery disease. SOCIAL HISTORY: The patient is and lives with his . The patient does not smoke or consume significant amounts of alcohol. MEDICATIONS: Prior to admission; oxygen 2 liters by nasal cannula as needed, atorvastatin 40 mg daily, clopidogrel 75 mg daily, iron sulfate 325 mg b.i.d., furosemide 20 mg daily, glimepiride 4 mg daily, omeprazole 20 mg daily, Percocet 5/325 q.6 hours p.r.n., pioglitazone 30 mg daily and MiraLax daily p.r.n. ALLERGIES: The patient lists an allergy to IODINE. REVIEW OF SYSTEMS: The patient denies diplopia or loss of vision. He denies focal weakness. He is generally weak and states he has difficult time walking because his legs are weak. He denies nausea or vomiting. He has no fevers, but he states that he feels chilled all the time. He is not sure if he has lost weight. He denies focal weakness. He has not had any change in bowel or bladder habits and denies blood in his stools or urine. He denies orthopnea or PND. He has noticed that his legs have been more swollen lately for "quite a while." He denies any skin rashes. He denies blood in his urine or stools or any other source. The remainder of the review of systems is negative except as noted above. PHYSICAL EXAMINATION: GENERAL: The patient is an elderly white male who is awake, alert and oriented. VITAL SIGNS: Pulse is 97 and regular with frequent premature beats. Blood pressure is 108/69. He is afebrile. HEENT: Normocephalic and atraumatic. Extraocular muscles are intact. Sclerae are clear. Pupils equal, round and react to light. The oral mucosa is moist. Tongue is midline. NECK: Supple. He has no jugular distention. He has mild hepatojugular reflux. Carotids are full. I heard no bruits. He had no neck or supraclavicular masses. LUNGS: Respirations are slightly labored and he is tachypneic. He does have bibasilar crackles. He has no presacral edema. CARDIOVASCULAR: His heart has a regular rapid rhythm. He has a third and a fourth heart sound. The PMI is somewhat displaced laterally. There is no precordial heave, lift or thrill. ABDOMEN: Soft and normally active without masses, organomegaly or bruits. [place], [place] REPORT OF CONSULTATION NAME: XIANG ORNELAS UNIT #: [id number] ROOM: [facility] DOCTOR: YESSICA WELLS MD BIRTHDATE: [birth year] EXTREMITIES: Showed 2+ edema bilaterally up to the knees. Pedal pulses are diminished. LABORATORY DATA: Chest x-ray shows mild cardiomegaly with poor inspiration. He does appear to have vascular congestion with a right pleural effusion and probable bibasilar infiltrates. Electrocardiogram shows sinus tachycardia with frequent PVCs. He does have poor precordial R-wave progression and low voltage. The EKG is essentially unchanged from a similar EKG obtained in our office in January 2017. Echocardiogram shows 4 chamber dilation with hypokinesis of the left ventricle and right ventricle. Estimated ejection fraction is 10%. He has moderate to severe mitral insufficiency and moderate tricuspid insufficiency. The IVC is dilated consistent with elevated central venous pressures. IMPRESSION: 1. Four chamber cardiac dilation with biventricular failure. This occurred sometime in the last year and may have occurred recently. Etiology is not clear, but may be related to acute infection, physical stress, or coronary artery disease. 2. Mild tachycardia. The patient does have sinus tachycardia with PVCs. It seems unlikely that the tachycardia is of a degree that it would cause left ventricular dysfunction. 3. Hypertension. 4. Type 2 diabetes mellitus. 5. Hyperlipidemia. 6. History of coronary artery disease, status post acute ST elevation myocardial infarction, March 2015, treated with a drug-eluting stent to the right coronary artery. 7. Chronic respiratory failure with acute exacerbation. 8. Severe sepsis. PLAN: We will increase his diuresis as tolerated by his renal function and blood pressure. We will also resume his beta hesham in low dose to help limit the heart rate. As tolerated by his blood pressure, we will initiate guideline directed medical therapy. As he stabilizes, we will probably consider the possibility of a risk stratifying stress test. If he fails to respond to routine measures, we will have to have a discussion with him regarding his prognosis given his age and poor left ventricular function. If he is interested in an aggressive management strategy, then transfer to a tertiary facility such as [facility] would be a good next step. I thank the hospitalist group for asking our advice regarding his care. [place], [place] REPORT OF CONSULTATION NAME: XIANG ORNELAS UNIT #: [id number] ROOM: [facility] DOCTOR: YESSICA WELLS MD BIRTHDATE: [birth year] YESSICA WELLS MD CM:CONSTR:REPORT OF CONSULTATION 1221 07/30/17 0015 interface
--- NOTE | ~2017-07-27 | PR ---
[place], [place] PROGRESS NOTE NAME: XIANG ORNELAS UNIT #: [id number] ROOM: [facility] DOCTOR: ABHISHEK MARTINEZ MD,LYNETTE BIRTHDATE: [birth year] DOS: 07/29/2017 PULMONARY PROGRESS NOTE SUBJECTIVE: The patient noted comfortable at this time without any acute distress at the present time. He has been noted on BiPAP at the present time and appears to be comfortable with that. He has not been noted any symptoms of chest pain or hemoptysis. The patient is continuing on intravenous antibiotics and diuretic treatment as well. He has been noted with general weakness and fatigue. Edema of the lower extremities seemed to be noted decreased. Review of systems cannot be effectively completed because of the use of continuous BiPAP. OBJECTIVE: VITAL SIGNS: For the patient which have been recorded showed normal temperature, respiratory rate range between 24-35. Heart rate 113-92. Blood pressure 91/65-108/69. Intake is 1620 mL, output 250 mL. The pulse oxygen saturation on 3 liters is 94% saturation. HEENT: Head was atraumatic. Eyes nonicterus. Edentulous status. CARDIOVASCULAR: S1, S2 audible. LUNGS: Noted with scattered crackles. Decreased breath sounds in the lower portion of the lungs. ABDOMEN: Soft, nontender. EXTREMITIES: Noted with mild edema. VISIBLE SKIN: No lesions or rashes. CENTRAL NERVOUS SYSTEM: No gross focal neurologic deficit. DATA: The echocardiogram that was completed this morning was reviewed by Dr. Steve. The patient was reported with findings of [id number] tricuspid valvular regurgitation. Severe reduction of the left ventricular ejection fraction was also reported from previous echocardiogram of 2016. Left ventricular ejection fraction noted only 10%. CBC this morning: WBC count normal, hemoglobin 11.1, hematocrit 37.5, platelet count 75,000. CMP on 07/29/2017 noted BUN 48, creatinine of 0.99. Chest x-ray done this morning shows pulmonary fibrosis which is noted previously, superimposed increased infiltration, and finding of congestive heart failure. IMPRESSION: 1. The patient with acute respiratory failure with congestive heart failure, severe cardiomyopathy was noted. 2. History of previous known pulmonary fibrosis as well. 3. Questionable pneumonia, which has been treated as well. 4. Severe hyperglycemia was also noted as a result of use of corticosteroids as well. 5. Acute exacerbation of chronic obstructive pulmonary disease as well. PLAN OF MANAGEMENT: Diuretic therapy to be continued for the patient under guidance of the Cardiology services. Reduce Solu-Medrol to 40 mg b.i.d. Continue empirical use of antibiotic until culture results were known. Other supportive plan of therapy and care plan for the patient to be continued. With [place], [place] PROGRESS NOTE NAME: XIANG ORNELAS UNIT #: [id number] ROOM: [facility] DOCTOR: LYNETTE NOVAK MD BIRTHDATE: [birth year] current presentation, diagnosis for pneumonia seemed to be unlikely. Lactic acidosis noted, most likely related to hypoperfusion with cardiomyopathy. LYNETTE WEISS MD CM:PNTRANS [id number] LYNETTE MARTINEZ MD 08/06/17 0748 interface
[~2017-07-27 18:56] MED LIST changes: +ACTOS30 M1 PO; +B12,B-12,B 12500 MC1 PO; +Carafate1 GM/10 ML PO; +DOXYCYCLINE100 M3 PO; +FEROSUL325 MG PO; +LASIX40 MG PO; +OXYGEN NAS; +OYSTER SHELL 51 EACH PO; +PERCOCET 5-3251 EACH PO; +PREDNISONE10 MG PO
[2017-07-27 19:03] VITALS: BP 123/75
[2017-07-27 19:27] LABS: BASO % 0.5 % (0.0-1.0); EOS # 0.1 10*3/uL (0.0-0.4); EOS % 1.9 % (1.0-4.0); HEMATOCRIT 38.7 % (42.0-52.0); LYMPH # 1.5 10*3/uL (1.3-4.4); LYMPH % 23.7 % (27.0-41.0); MEAN CELL VOLUME 104.6 fl (80.0-94.0); MEAN CORPUSCULAR HGB 32.4 pg (27.0-31.0); MEAN PLATELET VOLUME 11.6 fl (9.6-12.3); MONO # 0.4 10*3/uL (0.1-1.0); MONO % 5.7 % (3.0-9.0); NEUT # 4.3 10*3/uL (2.3-7.9); NEUT % 66.9 % (47.0-73.0); NUCLEATED RED BLOOD CELL 0.5 % (0.0-0.0); PLATELET COUNT AUTOMATED 94 10*3/uL (130-400); RED CELL DISTRI WIDTH 17.4 % (0-14.5); WHITE BLOOD COUNT 6.3 10*3/uL (4.8-10.8)
[2017-07-27 19:45] LABS: ALBUMIN 3.1 gm/dl (3.1-4.5); CREATININE 1.92 mg/dL (0.70-1.30); POTASSIUM 3.9 mmol/L (3.5-5.1); TOTAL PROTEIN 6.9 gm/dL (6.4-8.2)
[2017-07-27 19:50] LABS: TROPONIN I 0.06 ng/ml (<0.045)
[2017-07-27 19:51] LABS: INTERNATIONAL NORM RATIO 1.2 (2.0-3.5)
[2017-07-27 19:52] VITALS: BP 114/79
[2017-07-27 19:55] LABS: BILIRUBIN 1+ (NEGATIVE); BLOOD NEGATIVE (NEGATIVE); CLARITY CLEAR (CLEAR); COLOR YELLOW (YELLOW); GLUCOSE NEGATIVE (NEGATIVE); KETONE NEGATIVE (NEGATIVE); LEUKO ESTERASE NEGATIVE (NEGATIVE); NITRITE NEGATIVE (NEGATIVE); SPECIFIC GRAVITY >= 1.030 (1.005-1.030)
[2017-07-27 20:04] LABS: THYROID STIM HORMONE (HS) 3.17 uIU/ml (0.358-4.75)
[2017-07-27 20:14] LABS: HYALINE CAST 45-50
[2017-07-27 20:16] LABS: WBC 0-2 wbc/hpf (0-5)
[2017-07-27 20:47] VITALS: BP 121/80
[2017-07-27] MEDS ORDERED: LASIX20 MG PO (21:55)
[2017-07-27 22:00] VITALS: BP 108/83
[2017-07-27] MEDS ORDERED: MIRALAX119 GM PO (22:00)
[2017-07-27] MEDS ORDERED: CLOPIDOGREL75 MG PO (22:02)
[2017-07-28] VITALS (7 sets, daily range): BP systolic 92–120; BP diastolic 57–86
[2017-07-28 00:29] LABS: ABG BASE EXCESS -4.8 mmol/L (-2.0-2.0); ABG HCO3 18.2 mmol/l (22-26); ABG O2 SATURATION 94.2 % (95-97); ARTERIAL BLOOD GAS PH 7.426 (7.35-7.45)
[2017-07-28 06:11] LABS: BASO % 0.1 % (0.0-1.0); EOS % 0.3 % (1.0-4.0); HEMATOCRIT 35.8 % (42.0-52.0); LYMPH # 0.5 10*3/uL (1.3-4.4); LYMPH % 7.8 % (27.0-41.0); MEAN CORPUSCULAR HGB 32.3 pg (27.0-31.0); MEAN CORPUSCULAR HGB CONC 30.7 g/dl (33.0-37.0); MEAN PLATELET VOLUME 12.1 fl (9.6-12.3); MONO # 0.2 10*3/uL (0.1-1.0); MONO % 2.4 % (3.0-9.0); NEUT % 88.8 % (47.0-73.0); NUCLEATED RED BLOOD CELL 0.3 % (0.0-0.0); PLATELET COUNT AUTOMATED 82 10*3/uL (130-400); RED BLOOD COUNT 3.41 10*6/uL (4.50-5.90); RED CELL DISTRI WIDTH 17.1 % (0-14.5); WHITE BLOOD COUNT 6.8 10*3/uL (4.8-10.8)
[2017-07-28 06:15] LABS: CREATININE 1.59 mg/dL (0.70-1.30); FREE T4 1.16 ng/dl (0.76-1.46); PHOSPHOROUS 4.8 mg/dL (2.5-4.9); POTASSIUM 4.1 mmol/L (3.5-5.1)
[2017-07-28 06:26] LABS: THYROID STIM HORMONE (HS) 3.51 uIU/ml (0.358-4.75)
[2017-07-28 07:54] LABS: VITAMIN D, 25-HYDROXY 14.4 ng/mL (30-100)
[2017-07-29 00:01] VITALS: BP 91/65
[2017-07-29 04:13] VITALS: BP 91/65; BP 99/62
[2017-07-29 05:51] LABS: ALBUMIN 2.7 gm/dl (3.1-4.5); CREATININE 1.99 mg/dL (0.70-1.30); PHOSPHOROUS 5.1 mg/dL (2.5-4.9); POTASSIUM 4.3 mmol/L (3.5-5.1)
[2017-07-29 06:18] LABS: HEMATOCRIT 37.5 % (42.0-52.0); HEMOGLOBIN 11.1 g/dl (14.0-18.0); LYMPH # 0.9 10*3/uL (1.3-4.4); LYMPH % 11.7 % (27.0-41.0); MEAN CELL VOLUME 107.1 fl (80.0-94.0); MEAN CORPUSCULAR HGB 31.7 pg (27.0-31.0); MEAN CORPUSCULAR HGB CONC 29.6 g/dl (33.0-37.0); MEAN PLATELET VOLUME 12.6 fl (9.6-12.3); MONO # 0.2 10*3/uL (0.1-1.0); MONO % 2.8 % (3.0-9.0); NEUT # 6.1 10*3/uL (2.3-7.9); NEUT % 84.4 % (47.0-73.0); NUCLEATED RED BLOOD CELL 0.3 % (0.0-0.0); PLATELET COUNT AUTOMATED 75 10*3/uL (130-400); WHITE BLOOD COUNT 7.3 10*3/uL (4.8-10.8)
[2017-07-29 08:00] VITALS: BP 108/69
[2017-07-29 12:00] VITALS: BP 102/69
[2017-07-29 16:00] VITALS: BP 109/76
[2017-07-29 20:00] VITALS: BP 105/82
[2017-07-29 22:43] LABS: ABG HCO3 12.7 mmol/l (22-26); ABG O2 SATURATION 88.5 % (95-97); ARTERIAL BLOOD GAS PCO2 26.9 mmHg (35-45); ARTERIAL BLOOD GAS PH 7.291 (7.35-7.45); ARTERIAL BLOOD GAS PO2 61.8 mmHg (80-90)
[2017-07-29 22:44] LABS: ABG BASE EXCESS -12.4 mmol/L (-2.0-2.0)
== END 2017-07-29 23:27 | disposition expired | DRG 871 ==
LOC: ED 18:56 → 5E 20:05 → EDHOLD 20:05 → ICCU 20:05 → 5E 20:44 → ICCU 07-28 02:24
PROVIDERS: Emergency Medicine Emergency Medical Services; Internal Medicine; Internal Medicine Nephrology
PROC: 5A09357 Assistance with Respiratory Ventilation, Less than 24 Consecutive Hours, Continuous Positive Airway Pressure (ICD-10-PCS; principal; 2017-07-28)
PROC: 0BH17EZ Insertion of Endotracheal Airway into Trachea, Via Natural or Artificial Opening (ICD-10-PCS; 2017-07-29)
PROC: 5A12012 Performance of Cardiac Output, Single, Manual (ICD-10-PCS; 2017-07-29)
DX: A41.9 Sepsis, unspecified organism (principal); J18.9 Pneumonia, unspecified organism; N17.0 Acute kidney failure with tubular necrosis; J96.21 Acute and chronic respiratory failure with hypoxia; I50.41 Acute combined systolic (congestive) and diastolic (congestive) heart failure; D69.6 Thrombocytopenia, unspecified; E11.22 Type 2 diabetes mellitus with diabetic chronic kidney disease; E11.65 Type 2 diabetes mellitus with hyperglycemia; I42.9 Cardiomyopathy, unspecified; J44.0 Chronic obstructive pulmonary disease with (acute) lower respiratory infection; J44.1 Chronic obstructive pulmonary disease with (acute) exacerbation; I13.0 Hypertensive heart and chronic kidney disease with heart failure and stage 1 through stage 4 chronic kidney disease, or unspecified chronic kidney disease; M19.90 Unspecified osteoarthritis, unspecified site; E78.00 Pure hypercholesterolemia, unspecified; Z96.1 Presence of intraocular lens; N18.9 Chronic kidney disease, unspecified; E86.0 Dehydration; R65.20 Severe sepsis without septic shock; R74.8 Abnormal levels of other serum enzymes; K21.9 Gastro-esophageal reflux disease without esophagitis; D53.9 Nutritional anemia, unspecified; I25.10 Atherosclerotic heart disease of native coronary artery without angina pectoris; T38.0X5A Adverse effect of glucocorticoids and synthetic analogues, initial encounter; Y92.89 Other specified places as the place of occurrence of the external cause; Z91.048 Other nonmedicinal substance allergy status; Z91.81 History of falling; Z98.42 Cataract extraction status, left eye; I25.2 Old myocardial infarction; Z85.828 Personal history of other malignant neoplasm of skin; Z98.41 Cataract extraction status, right eye; Z95.5 Presence of coronary angioplasty implant and graft; Z87.891 Personal history of nicotine dependence; Z82.49 Family history of ischemic heart disease and other diseases of the circulatory system; Z79.899 Other long term (current) drug therapy; Z79.84 Long term (current) use of oral hypoglycemic drugs; Z79.02 Long term (current) use of antithrombotics/antiplatelets